=== PATIENT | male | born 1940 | race Caucasian/White ===

== ENCOUNTER → 2017-03-20 | Outpatient (CLI) | payer MEDICARE, BC, OTHER ==
[~2017-03-20] MED LIST: /ESOM40CA; /FERG32TA PO; /PANT40TA PO; /WARF25TA; ASPI81CH PO; ATOR40TA PO; CEPH2CAP PO; DIVA500T9 PO; ERGO5000 PO; FINA5TAB2 PO; FISHCAP PO; LISI20TA PO; MULTTAB4 PO; MUPI2OIN TOP; NAPR500T2 PO; PERC5TAB8; SANT250O TOP; SYMB80AE INH; TRIA TOP; TYLE325T5 PO; VITA100066 PO; VITA200028 PO; VITAMIN D50000 UNT; VYTO10TA5; ZEST20TA8 PO
--- NOTE | 2017-03-22 11:32 | SLEEPCENT ---
DATE OF STUDY: 03/20/2017 ORDERING PHYSICIAN: Joe Robles MD Nocturnal polysomnography was performed for retitration of pressure therapy in this patient with obstructive sleep apnea syndrome on bilevel treatment. For testing, a Kanshu Simplus full face mask of medium size was used. An initial bilevel pressure of 12 inspiratory over 8 expiratory was applied to the circuit, and the lights were extinguished. 8 hours and 22 minutes of data were reviewed. Of these, 419 minutes of sleep were identified. Sleep latency was quite short at 4 minutes. Rapid eye movement (REM) latency was also short at 33 minutes. Sleep architecture was fair with four REM periods appreciated. There was some fragmentation, but overall sleep efficiency was 84%. The patient's electrocardiogram (EKG) showed what appeared to be a sinus rhythm with an average heart rate of 56 beats per minute. Electroencephalogram (EEG) showed reasonably normal waveforms. No focal events were identified. Respiratory events were found best palliated with bilevel pressure, inspiratory 16 over expiratory 12. Limb activity appreciated early in the study became significantly less over the course of the test. IMPRESSION: Obstructive sleep apnea syndrome (G47.33). RECOMMENDATION: Nightly use of bilevel pressure therapy, inspiratory 16 over expiratory 12.
== END ==
LOC: M SLEEP 20:10
PROVIDERS: ATTEND Internal Medicine Pulmonary Disease
DX: G47.33 Obstructive sleep apnea (adult) (pediatric) (principal)

== ENCOUNTER → 2018-03-18 | Outpatient (CLI) | payer MEDICARE, BC, OTHER | LOC: M SLEEP 20:00 | DX: G47.33 Obstructive sleep apnea (adult) (pediatric) (principal) | CPT/HCPCS: 95811 ==

== ENCOUNTER → 2019-10-08 | Outpatient (CLI) | payer MEDICARE, BC, OTHER ==
[~2019-10-08] MED LIST changes: -/ESOM40CA; -/FERG32TA PO; -/PANT40TA PO; -/WARF25TA; +COLL30OI TOP; +COUM1TAB18; +FERR1TAB6 PO; +NEXI1CAP3; +PROT1TAB2 PO; -SANT250O TOP; -TRIA TOP; +TRIA1CRE5 TOP
[2019-10-08 13:37] LABS: HEMATOCRIT 41.2 % (42.0-52.0); HEMOGLOBIN 13.4 g/dl (13.5-17.5); MEAN CORPUSCULAR HGB CONC 32.5 g/dl (32.0-36.5); MEAN CORPUSCULAR VOLUME 101.5 fl (80.0-96.0); PLATELET COUNT, AUTOMATED 156 10^3/uL (150-450); RED BLOOD COUNT 4.06 10^6/uL (4.30-6.10); WHITE BLOOD COUNT 6.4 10^3/uL (4.0-10.0)
--- NOTE | 2019-10-08 13:48 | REP ---
Clinical: Preoperative assessment . Comparison: 06/29/2016 . Technique: PA and lateral. Findings: The cardiac silhouette is mildly enlarged but stable. Hiatal hernia with air-fluid level noted. The lung crespo are clear and without acute consolidation, effusion, or pneumothorax. The skeletal structures are intact and normal. Impression: 1. No acute cardiopulmonary process. Electronically Signed by Sim Ladd MD 10/08/2019 01:39 P
[2019-10-08 13:49] LABS: INR 1.14; PROTHROMBIN TIME 14.3 SECONDS (11.8-14.0)
[2019-10-08 14:00] LABS: ERYTHROCYTE SEDIMENTATION RATE 5 mm/hr (0-20)
[2019-10-08 14:04] LABS: ALBUMIN 3.6 GM/DL (3.2-5.2); BILIRUBIN,TOTAL 0.7 MG/DL (0.2-1.0); CALCIUM LEVEL 9.4 MG/DL (8.8-10.2); CREATININE FOR GFR 2.32 MG/DL (0.70-1.30); POTASSIUM SERUM 5.2 MEQ/L (3.5-5.1); TOTAL PROTEIN 6.2 GM/DL (6.4-8.2)
--- NOTE | 2019-10-08 15:55 | ECGEPIP ---
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
== END ==
LOC: M LAB 12:31
PROVIDERS: ATTEND Internal Medicine
DX: Z01.818 Encounter for other preprocedural examination (principal); Z79.01 Long term (current) use of anticoagulants

== ENCOUNTER 2019-10-19 13:15 | Day surgery (SDC) | payer MEDICARE, BC, OTHER ==
[~2019-10-19] VITALS: Ht 177.8 cm; Wt 111.6 kg
[~2019-10-19 13:15] MED LIST changes: +ASPI81TA26 PO; +ATOR40TA75 PO; +DOXY100T PO; +FERR32TA PO; +FISH1000 PO; +FLON1SPR NARES; +LEVO150T7 PO; +LISI2.5T76 PO; +LISI20TA19 PO; +MULT1TAB8 PO; +NAPR-885 PO; +NS 1,000 ML IV SCH; +PANT40TA3 PO; +PROAAER10 INH; +SYMB16INH INH; +TAMS1CAP17 PO; +VITA50005 PO
[2019-10-19] MEDS ORDERED: LIDOCAINE 2% INJ 100 MG/5 ML SDV (FOR ANES.) As Ordered ONE (14:16)
[2019-10-19] MEDS ORDERED: PROPOFOL 200 MG/20 ML VIAL As Ordered ONE (14:16)
--- NOTE | 2019-10-19 14:39 | ROOR ---
Patient Name: Enrique Castillo Procedure Date: 10/19/2019 2:15 PM Date of : 1940 Age: 79 Room: [facility] Gender: Male Note Status: Finalized Procedure: Upper GI endoscopy Indications: Dysphagia Providers: Alden DAWKINS MD Referring MD: Jose Pearson MD Requesting Provider: Medicines: Monitored Anesthesia Care Complications: No immediate complications. Procedure: Pre-Anesthesia Assessment: - The heart rate, respiratory rate, oxygen saturations, blood pressure, adequacy of pulmonary ventilation, and response to care were monitored throughout the procedure. The Endoscope was introduced through the mouth, and advanced to the second part of duodenum. The upper GI endoscopy was accomplished without difficulty. The patient tolerated the procedure well. Findings: A moderate Schatzki ring was found at the gastroesophageal junction. A TTS dilator was passed through the scope. Dilation with an 18-19-20 mm balloon dilator was performed to 19 mm. The dilation site was examined and showed complete resolution of luminal narrowing. A medium-sized hiatal hernia was present. The exam of the stomach was otherwise normal. The examined duodenum was normal. Impression: - Moderate Schatzki ring. Dilated. - Medium/large-sized hiatal hernia. - The stomach is otherwise normal. - Normal examined duodenum. - No specimens collected. Recommendation: - Observe patient's clinical course. - Advance diet as tolerated. Alden Dawkins MD Alden DAWKINS MD 10/19/2019 2:39:09 PM Electronically signed by Alden DAWKINS MD Number of Addenda: 0 Note Initiated On: 10/19/2019 2:15 PM Estimated Blood Loss: Estimated blood loss: none.
[2019-10-19 15:14] VITALS: BP 135/66
== END 2019-10-19 15:14 | disposition home or self-care (01) ==
LOC: M OPP 13:15
PROVIDERS: ATTEND Internal Medicine Gastroenterology
DX: K22.2 Esophageal obstruction (principal); K44.9 Diaphragmatic hernia without obstruction or gangrene; R13.10 Dysphagia, unspecified; Z79.82 Long term (current) use of aspirin; Z79.899 Other long term (current) drug therapy; Z88.2 Allergy status to sulfonamides; Z88.1 Allergy status to other antibiotic agents; Z91.018 Allergy to other foods

== ENCOUNTER → 2020-01-30 | Outpatient (REF) | payer MEDICARE, OTHER ==
[~2020-01-30] MED LIST changes: -NS 1,000 ML IV SCH
[2020-01-30 13:33] LABS: C REACTIVE PROTEIN QUANTITATIV < 0.30 MG/DL (0.00-0.30); RHEUMATOID FACTOR QUANT < 10.0 IU/ML (<15.0)
[2020-01-30 13:36] LABS: BASO % 0.5 % (0.0-1.0); EOS # 0.3 10^3/uL (0.0-0.5); EOS % 4.5 % (0.0-3.0); HEMATOCRIT 36.3 % (42.0-52.0); LYMPH # 0.8 10^3/uL (1.5-5.0); LYMPH % 13.5 % (24.0-44.0); MEAN CORPUSCULAR HEMOGLOBIN 33.1 pg (27.0-33.0); MEAN CORPUSCULAR HGB CONC 33.1 g/dl (32.0-36.5); MEAN CORPUSCULAR VOLUME 100.3 fl (80.0-96.0); MONO # 0.8 10^3/uL (0.0-0.8); MONO % 12.8 % (0.0-5.0); NEUTROPHILS # 4.3 10^3/uL (1.5-8.5); NEUTROPHILS % 68.2 % (36.0-66.0); PLATELET COUNT, AUTOMATED 146 10^3/uL (150-450); RED BLOOD COUNT 3.62 10^6/uL (4.30-6.10); WHITE BLOOD COUNT 6.2 10^3/uL (4.0-10.0)
[2020-01-30 13:46] LABS: INR 1.1; PROTHROMBIN TIME 13.9 SECONDS (11.8-14.0)
[2020-01-30 14:13] LABS: ERYTHROCYTE SEDIMENTATION RATE 3 mm/hr (0-20)
[2020-02-01 14:08] LABS: CYCLIC CITRULLINATED PEPTIDE 8 units (0-19); Lyme Disease IgG/IgM Antibodie <0.91 ISR (0.00-0.90); Lyme Disease IgM Ab Quantitati <0.80 index (0.00-0.79)
== END ==
LOC: M SFHCPLAZ 11:00
PROVIDERS: ATTEND Internal Medicine
DX: M25.50 Pain in unspecified joint (principal); W57.XXXA Bitten or stung by nonvenomous insect and other nonvenomous arthropods, initial encounter; R23.8 Other skin changes
CPT/HCPCS: 36415; 85025; 85610; 85652; 86140; 86200; 86431; 86617; G0463

== ENCOUNTER → 2020-04-11 | Outpatient (CLI) | payer MEDICARE, BC, OTHER ==
[~2020-04-11] MED LIST changes: +LISI-1034 PO; -LISI2.5T76 PO
== END ==
LOC: M LABSMTC 09:57
PROVIDERS: ATTEND Physician Assistant
DX: Z03.818 Encounter for observation for suspected exposure to other biological agents ruled out (principal); Z11.59 Encounter for screening for other viral diseases

== ENCOUNTER → 2020-05-26 | Outpatient (CLI) | payer MEDICARE, BC, OTHER ==
[~2020-05-26] MED LIST changes: -LISI-1034 PO; +LISI2.5T8 PO; -LISI20TA19 PO; +LISI20TA35 PO; +PANT40TA29 PO; -PANT40TA3 PO
--- NOTE | 2020-05-26 15:26 | REP ---
WHOLE BODY RADIONUCLIDE BONE SCAN: HISTORY: Spondylolysis lumbar spine. Question metastasis. No comparison imaging. The patient gives a history of a remote right knee replacement. TECHNIQUE: 21.4 mCi technetium 99m MDP is injected and standard whole body bone scan imaging was acquired. SCINTIGRAPHIC FINDINGS: There is uptake in bilateral kidneys and in the urinary bladder. There is some anterior mandibular and diffuse maxillary periodontal uptake bilaterally suggesting. Dental disease or other dental abnormality. Mild degenerative uptake is seen in the cervical spine and lumbosacral spine. There is degenerative uptake at the costovertebral junctions of T11 bilaterally and T12 on the left. There is a focus of increased uptake in the right rib cage involving the anterior right 9th rib end consistent with a recent fracture. There is osteoarthritic uptake in the left knee and photopenia associated with right knee arthroplasty is seen. There is osteoarthritic midfoot uptake bilaterally. IMPRESSION: Degenerative and osteoarthritic uptake pattern. Right anterior 9th rib and focus of increased uptake may correspond with recent fracture. Mandibular and maxillary uptake pattern suggests periodontal disease or dental inflammation. There is no scintigraphic evidence suggestive of metastatic disease. Electronically Signed by Aguila Edmond MD 05/26/2020 04:19 P
== END ==
LOC: M RAD 10:09
PROVIDERS: ATTEND Physical Medicine & Rehabilitation
DX: M43.06 Spondylolysis, lumbar region (principal)
CPT/HCPCS: 78306; A9503

== ENCOUNTER → 2020-08-27 | Outpatient (CLI) | payer MEDICARE, BC, OTHER | LOC: M LABSMTC 09:44 | PROVIDERS: ATTEND Physical Medicine & Rehabilitation | DX: Z01.812 Encounter for preprocedural laboratory examination (principal); Z20.828 Contact with and (suspected) exposure to other viral communicable diseases ==

== ENCOUNTER → 2020-09-30 | Outpatient (REF) | payer MEDICARE, BC, OTHER ==
[2020-09-30 14:04] LABS: APPEARANCE, URINE CLEAR (CLEAR); BACTERIA, URINE AUTO NEGATIVE (NEGATIVE); BILIRUBIN, URINE AUTO NEGATIVE (NEGATIVE); BLOOD, URINE BLOOD NEGATIVE (NEGATIVE); COLOR, URINE YELLOW (YELLOW); GLUCOSE, URINE (UA) AUTO NEGATIVE (NEGATIVE); KETONE, URINE AUTO NEGATIVE (NEGATIVE); LEUKOCYTE ESTERASE, URINE AUTO 1+ (NEGATIVE); MUCUS, URINE SMALL (NEGATIVE); NITRITE, URINE AUTO NEGATIVE (NEGATIVE); PROTEIN, URINE AUTO NEGATIVE (NEGATIVE); RBC, URINE AUTO 0 /HPF (0-3); SPECIFIC GRAVITY URINE AUTO 1.016 (1.002-1.035); SQUAMOUS EPITHELIAL CELL UR AU 0 /HPF (0-6); UROBILINOGEN, URINE AUTO 0.2 mg/dL (0.0-2.0); WBC, URINE AUTO 4 /HPF (0-3)
== END ==
LOC: M SFHCPLAZ 13:12
PROVIDERS: ATTEND Physician Assistant Medical
DX: I12.9 Hypertensive chronic kidney disease with stage 1 through stage 4 chronic kidney disease, or unspecified chronic kidney disease (principal); N18.30 Chronic kidney disease, stage 3 unspecified; Z79.899 Other long term (current) drug therapy; Z23 Encounter for immunization
CPT/HCPCS: 81001; 81002; 87088; 87186; 90682; G0008; G0463

== ENCOUNTER → 2021-03-31 | Outpatient (REF) | payer MEDICARE, OTHER ==
[2021-03-31 13:42] LABS: BASO % 0.5 % (0.0-1.0); EOS # 0.3 10^3/uL (0.0-0.5); EOS % 4.7 % (0.0-3.0); HEMOGLOBIN 12.2 g/dl (13.5-17.5); LYMPH % 16.4 % (24.0-44.0); MEAN CORPUSCULAR HEMOGLOBIN 32.4 pg (27.0-33.0); MEAN CORPUSCULAR VOLUME 98.1 fl (80.0-96.0); MONO # 0.7 10^3/uL (0.0-0.8); MONO % 11.1 % (2.0-8.0); NEUTROPHILS # 4.2 10^3/uL (1.5-8.5); NEUTROPHILS % 66.8 % (36.0-66.0); PLATELET COUNT, AUTOMATED 199 10^3/uL (150-450); RED BLOOD COUNT 3.77 10^6/uL (4.30-6.10); WHITE BLOOD COUNT 6.2 10^3/uL (4.0-10.0)
[2021-03-31 15:59] LABS: ALBUMIN 3.8 GM/DL (3.2-5.2); BILIRUBIN,TOTAL 0.8 MG/DL (0.2-1.0); CALCIUM LEVEL 9.5 MG/DL (8.8-10.2); CHOLESTEROL RISK RATIO 3.244 (<5); CREATININE FOR GFR 2.23 MG/DL (0.70-1.30); GLOMERULAR FILTRATION RATE 30.3 (>35); MAGNESIUM LEVEL 1.9 MG/DL (1.8-2.4); POTASSIUM SERUM 5.1 MEQ/L (3.5-5.1); THYROID STIMULATING HORMONE 0.575 uIU/ML (0.358-3.740); TOTAL PROTEIN 6.5 GM/DL (6.4-8.2)
== END ==
LOC: M SFHCPLAZ 10:21
PROVIDERS: ATTEND Internal Medicine
DX: J45.909 Unspecified asthma, uncomplicated (principal); I12.9 Hypertensive chronic kidney disease with stage 1 through stage 4 chronic kidney disease, or unspecified chronic kidney disease; E78.00 Pure hypercholesterolemia, unspecified; N18.30 Chronic kidney disease, stage 3 unspecified; E89.0 Postprocedural hypothyroidism
CPT/HCPCS: 36415; 80053; 80061; 83735; 83970; 84443; 85025; G0463

== ENCOUNTER → 2021-12-10 | Outpatient (CLI) | payer MEDICARE, BC, OTHER ==
[~2021-12-10] MED LIST changes: +ERGO500029 PO; -VITA50005 PO
== END ==
LOC: M RAD 14:28
PROVIDERS: ATTEND Internal Medicine Pulmonary Disease
DX: R91.8 Other nonspecific abnormal finding of lung field (principal)

== ENCOUNTER → 2022-03-31 | Outpatient (CLI) | payer MEDICARE, BC, OTHER ==
[2022-03-31 13:28] LABS: BASO % 0.6 % (0.0-1.0); EOS # 0.4 10^3/uL (0.0-0.5); EOS % 5.6 % (0.0-3.0); LYMPH % 14.4 % (24.0-44.0); MEAN CORPUSCULAR HEMOGLOBIN 32.3 pg (27.0-33.0); MEAN CORPUSCULAR HGB CONC 33.3 g/dl (32.0-36.5); MEAN CORPUSCULAR VOLUME 96.8 fl (80.0-96.0); MONO # 0.9 10^3/uL (0.0-0.8); MONO % 11.8 % (2.0-8.0); NEUTROPHILS # 4.9 10^3/uL (1.5-8.5); NEUTROPHILS % 67.3 % (36.0-66.0); PLATELET COUNT, AUTOMATED 128 10^3/uL (150-450); RED BLOOD COUNT 3.72 10^6/uL (4.30-6.10); WHITE BLOOD COUNT 7.2 10^3/uL (4.0-10.0)
[2022-03-31 13:44] LABS: HEMOGLOBIN A1c 5.6 %
[2022-03-31 13:51] LABS: ALBUMIN 3.6 GM/DL (3.2-5.2); CALCIUM LEVEL 9.3 MG/DL (8.8-10.2); CHOLESTEROL RISK RATIO 2.322 (<5); CREATININE FOR GFR 2.13 MG/DL (0.70-1.30); GLOMERULAR FILTRATION RATE 31.8 (>35); MAGNESIUM LEVEL 1.8 MG/DL (1.8-2.4); POTASSIUM SERUM 5.3 MEQ/L (3.5-5.1); PTH INTACT 26.3 PG/ML (18.5-88.0); THYROID STIMULATING HORMONE 0.743 uIU/ML (0.358-3.740); TOTAL PROTEIN 6.2 GM/DL (6.4-8.2)
== END ==
LOC: M PLALAB 11:45
PROVIDERS: ATTEND Internal Medicine
DX: I12.9 Hypertensive chronic kidney disease with stage 1 through stage 4 chronic kidney disease, or unspecified chronic kidney disease (principal); E78.00 Pure hypercholesterolemia, unspecified; N18.32 Chronic kidney disease, stage 3b; E89.0 Postprocedural hypothyroidism; R73.09 Other abnormal glucose

== ENCOUNTER → 2022-11-26 | Outpatient (CLI) | payer MEDICARE, BC, OTHER ==
[2022-11-26 14:03] LABS: BASO % 0.6 % (0.0-1.0); EOS # 0.2 10^3/uL (0.0-0.5); EOS % 3.4 % (0.0-3.0); HEMATOCRIT 39.5 % (42.0-52.0); HEMOGLOBIN 12.6 g/dl (13.5-17.5); LYMPH # 1.2 10^3/uL (1.5-5.0); LYMPH % 16.5 % (24.0-44.0); MEAN CORPUSCULAR HEMOGLOBIN 31.4 pg (27.0-33.0); MEAN CORPUSCULAR HGB CONC 31.9 g/dl (32.0-36.5); MEAN CORPUSCULAR VOLUME 98.5 fl (80.0-96.0); MONO # 0.8 10^3/uL (0.0-0.8); MONO % 11.9 % (2.0-8.0); NEUTROPHILS # 4.8 10^3/uL (1.5-8.5); NEUTROPHILS % 67.5 % (36.0-66.0); PLATELET COUNT, AUTOMATED 177 10^3/uL (150-450); RED BLOOD COUNT 4.01 10^6/uL (4.30-6.10)
[2022-11-26 14:12] LABS: INR 0.93; PROTHROMBIN TIME 12.7 SECONDS (12.5-14.5)
[2022-11-26 14:13] LABS: PARTIAL THROMBOPLASTIN TIME 28.1 SECONDS (24.8-34.2)
[2022-11-26 14:38] LABS: ALBUMIN 3.9 G/DL (3.2-5.2); BILIRUBIN,TOTAL 1.1 MG/DL (0.3-1.2); CALCIUM LEVEL 10.5 MG/DL (8.3-10.6); CREATININE FOR GFR 1.98 MG/DL (0.70-1.30); GLOMERULAR FILTRATION RATE 34.5 (>35); POTASSIUM SERUM 4.8 MMOL/L (3.5-5.1); TOTAL PROTEIN 6.6 G/DL (5.7-8.2)
== END ==
LOC: M PLALAB 11:44
PROVIDERS: ATTEND Family Medicine
DX: N18.32 Chronic kidney disease, stage 3b (principal); Z79.899 Other long term (current) drug therapy

== ENCOUNTER → 2023-04-01 | Outpatient (CLI) | payer MEDICARE, BC, OTHER ==
[~2023-04-01] MED LIST changes: +LIDOCAINE 1% MDV 20ML VIAL As Ordered ONE
[2023-04-01 13:30] VITALS: BP 165/77
[2023-04-01 16:08] LABS: CRYSTALS, BODY FLUID NONE SEEN (NONE SEEN); SOURCE, BODY FLUID CRYSTALS RIGHT HIP
== END ==
LOC: M IRPRO 12:36
PROVIDERS: ATTEND Orthopaedic Surgery
DX: M25.451 Effusion, right hip (principal)

== ENCOUNTER 2024-05-02 18:10 | Emergency (ER) | payer MEDICARE, BC ==
[~2024-05-02] VITALS: Ht 177.8 cm; Wt 84.5 kg
[~2024-05-02 18:10] MED LIST changes: -LIDOCAINE 1% MDV 20ML VIAL As Ordered ONE; +TRAM50TA2 PO
[2024-05-02] MEDS: ALTEPLASE 2MG/2ML VIAL IV ONE (18:53)
[2024-05-02 21:16] VITALS: BP 158/87; O2SAT 97
== END 2024-05-02 22:10 | disposition home or self-care (01) ==
LOC: M ED 18:10 → EDBD 18:10 → M ED 22:10
DX: T82.898A Other specified complication of vascular prosthetic devices, implants and grafts, initial encounter (principal); I10 Essential (primary) hypertension; N18.9 Chronic kidney disease, unspecified; D63.8 Anemia in other chronic diseases classified elsewhere; G47.33 Obstructive sleep apnea (adult) (pediatric); Z86.79 Personal history of other diseases of the circulatory system; Z79.52 Long term (current) use of systemic steroids; Z79.82 Long term (current) use of aspirin; Z79.02 Long term (current) use of antithrombotics/antiplatelets; Z79.811 Long term (current) use of aromatase inhibitors; Z79.899 Other long term (current) drug therapy
CPT/HCPCS: 96374; 99284; J2997

== ENCOUNTER 2024-05-06 10:18 | Inpatient (IN) | payer MEDICARE, BC ==
[~2024-05-06] VITALS: Ht 177.8 cm; Wt 80.7 kg
[2024-05-06] MEDS ORDERED: SODIUM CHLORIDE 0.9% INJ 10 ML SYR IV PRN (12:50)
[2024-05-06 13:33] LABS: BASO # 0.1 10^3/uL (0.0-0.2); BASO % 0.6 % (0.0-1.0); EOS # 0.6 10^3/uL (0.0-0.5); EOS % 5.5 % (0.0-3.0); HEMATOCRIT 37.8 % (42.0-52.0); HEMOGLOBIN 12.4 g/dl (13.5-17.5); LYMPH # 1.3 10^3/uL (1.5-5.0); LYMPH % 12.3 % (24.0-44.0); MEAN CORPUSCULAR HEMOGLOBIN 31.6 pg (27.0-33.0); MEAN CORPUSCULAR HGB CONC 32.8 g/dl (32.0-36.5); MEAN CORPUSCULAR VOLUME 96.2 fl (80.0-96.0); MONO # 0.9 10^3/uL (0.0-0.8); NEUTROPHILS # 7.4 10^3/uL (1.5-8.5); NEUTROPHILS % 72.1 % (36.0-66.0); PLATELET COUNT, AUTOMATED 198 10^3/uL (150-450); RED BLOOD COUNT 3.93 10^6/uL (4.30-6.10); WHITE BLOOD COUNT 10.2 10^3/uL (4.0-10.0)
[2024-05-06 13:41] LABS: ERYTHROCYTE SEDIMENTATION RATE 53 mm/hr (0-20)
[2024-05-06 13:53] LABS: C REACTIVE PROTEIN QUANTITATIV 5.8 MG/DL (<1.0)
[2024-05-06] MEDS ORDERED: PROHANCE 279.3MG/ML 5ML VIAL As Ordered ONE (14:18)
[2024-05-06] MEDS ORDERED: PROHANCE 279.3MG/ML 15ML VIAL As Ordered ONE (14:18)
[2024-05-06] MEDS: ACETAMINOPHEN TAB 650MG DOSE (2X325MG) PO ONE (17:06)
[2024-05-06] MEDS ORDERED: ACETAMINOPHEN TAB 650MG DOSE (2X325MG) PO PRN (17:55)
[2024-05-06] MEDS ORDERED: MOM 30ML SUSPENSION UDC PO PRN (17:55)
[2024-05-06] MEDS: ALTEPLASE 2MG/2ML VIAL XX ONE (18:35)
[2024-05-06] MEDS: SODIUM CHLORIDE 0.9% INJ 10 ML SYR IV SCH (18:36)
[2024-05-06] MEDS ORDERED: AMOX875T2 PO (18:52)
[2024-05-06] MEDS ORDERED: BREO1INH INH (18:52)
[2024-05-06] MEDS ORDERED: BUSP5TA PO (18:52)
[2024-05-06] MEDS ORDERED: TOPR25TA PO (18:52)
[2024-05-06] MEDS ORDERED: MM S100C PO (18:52)
[2024-05-06] MEDS ORDERED: ALTE2VL IV (18:52)
[2024-05-06] MEDS ORDERED: AMLO1TAB24 PO (18:52)
[2024-05-06] MEDS ORDERED: LIDO1ADH10 TP (18:52)
[2024-05-06] MEDS ORDERED: MIRT-88 PO (18:52)
[2024-05-06] MEDS ORDERED: ACET-683 PO (18:52)
[2024-05-06] MEDS ORDERED: DAPT500V8 IV (18:52)
[2024-05-06] MEDS ORDERED: FINA5TAB2 PO (18:52)
[2024-05-06] MEDS ORDERED: MYRB25TA PO (18:52)
[2024-05-06] MEDS ORDERED: GABA-282 PO (18:52)
[2024-05-06] MEDS ORDERED: SENN-186 PO (19:21)
[2024-05-06] MEDS ORDERED: ALBU8.5H INH (19:21)
[2024-05-06] MEDS ORDERED: HOME MED LIST COMPLETE! XX SCH (19:25)
[2024-05-06 19:31] LABS: HEMOGLOBIN A1c 5.4 % (4.0-6.0)
[2024-05-06 20:22] LABS: CHOLESTEROL RISK RATIO 4.4 (<5); HDL CHOLESTEROL 40.9 MG/DL (>40); LDL CHOLESTEROL 107.5 MG/DL (<100); NON-HDL-C 139.1 MG/DL
[2024-05-06 20:23] LABS: MB/CK RELATIVE INDEX 1.88 (< OR =4)
[2024-05-06 22:06] VITALS: BP 139/81; TEMP 97.2; O2SAT 93
[2024-05-06] MEDS ORDERED: traMADol 50 MG TAB PO PRN (22:15)
[2024-05-06] MEDS: TAMSULOSIN 0.4 MG CAP PO SCH (22:30)
[2024-05-06] MEDS: MIRTAZAPINE 7.5MG PER 1/2 TABLET PO SCH (22:30)
[2024-05-06] MEDS: FINASTERIDE 5MG TAB PO SCH (22:30)
[2024-05-06] MEDS: GABAPENTIN 300 MG CAP PO SCH (22:30)
[2024-05-06] MEDS: busPIRone 5 MG TAB PO SCH (22:30)
[2024-05-06] MEDS: DOCUSATE SODIUM 100MG CAPSULE PO SCH (22:30)
[2024-05-06] MEDS: NS IV SCH (23:52)
[2024-05-06] MEDS: DAPTOMYCIN IV SCH (23:52)
[2024-05-07] VITALS (14 sets, daily range): BP systolic 112–143; BP diastolic 68–88; TEMP 97.4–98; O2SAT 88–98
[2024-05-07] MEDS: LEVOTHYROXINE 150MCG TABLET (0.15MG) PO SCH (04:57)
[2024-05-07] MEDS: HEPARIN SOD (PORCINE) 5000UNITS/ML 1ML VIAL/SYRINGE SQ SCH (05:05)
[2024-05-07 05:51] LABS: HEMATOCRIT 35.1 % (42.0-52.0); HEMOGLOBIN 11.6 g/dl (13.5-17.5); MEAN CORPUSCULAR HEMOGLOBIN 31.5 pg (27.0-33.0); MEAN CORPUSCULAR VOLUME 95.4 fl (80.0-96.0); PLATELET COUNT, AUTOMATED 206 10^3/uL (150-450); RED BLOOD COUNT 3.68 10^6/uL (4.30-6.10); WHITE BLOOD COUNT 9.5 10^3/uL (4.0-10.0)
[2024-05-07 06:08] LABS: INR 1.08; PROTHROMBIN TIME 13.7 SECONDS (12.5-14.5)
[2024-05-07 06:20] LABS: CALCIUM LEVEL 10.2 MG/DL (8.3-10.6); CREATININE FOR GFR 1.63 MG/DL (0.70-1.30); GLOMERULAR FILTRATION RATE 43.1 (>35); POTASSIUM SERUM 4.5 MMOL/L (3.5-5.1)
[2024-05-07 06:27] LABS: ERYTHROCYTE SEDIMENTATION RATE 55 mm/hr (0-20); PROCALCITONIN 0.06 ng/ml
[2024-05-07] MEDS ORDERED: MIRALAX *UNIT DOSE* 17GM PACKET PO SCH (09:00)
[2024-05-07] MEDS ORDERED: ENOXAPARIN 40MG/0.4ML SYRINGE (J1650 PER 10MG) SC SCH (09:00)
[2024-05-07] MEDS: ADVAIR HFA 230/21MCG INHALER INH SCH (10:39)
[2024-05-07] MEDS ORDERED: VARIBAR NECTAR 40% w/v 240ML SUSP BTL As Ordered ONE (11:41)
[2024-05-07] MEDS ORDERED: VARIBAR PUDDING 40% w/v 230ML TUBE As Ordered ONE (11:41)
[2024-05-07] MEDS ORDERED: BARIUM SULFATE 700 MG TABLET (E-Z-DISK) As Ordered ONE (11:41)
[2024-05-07] MEDS ORDERED: E-Z-PAQUE 96% w/w SUSP 176GM BTL As Ordered ONE (11:41)
[2024-05-07] MEDS: ASPIRIN 325 MG TAB PO SCH (15:01)
[2024-05-07] MEDS: PANTOPRAZOLE 40MG TAB (PROTONIX) PO SCH (15:02)
[2024-05-07] MEDS ORDERED: SENNA 8.6 MG TAB (SENOKOT) PO PRN (16:10)
[2024-05-07] MEDS: PANTOPRAZOLE 40MG VIAL IV SCH (17:26)
[2024-05-07] MEDS: BISACODYL 10MG SUPP PR ONE (17:26)
[2024-05-07] MEDS: FLEET ENEMA PR ONE (18:06)
[2024-05-07] MEDS: SODIUM CHLORIDE 0.9% INJ 10 ML SYR IV SCH (18:18)
[2024-05-07] MEDS: ATORVASTATIN 20 MG TAB PO SCH (21:00)
[2024-05-07] MEDS: NYSTATIN 100,000 UNITS/GM TOPICAL PWD 15GM TOP SCH (21:37)
[2024-05-08 03:50] VITALS: BP 129/79; TEMP 98.4; O2SAT 97
[2024-05-08 06:17] LABS: HEMATOCRIT 35.1 % (42.0-52.0); HEMOGLOBIN 11.8 g/dl (13.5-17.5); MEAN CORPUSCULAR HEMOGLOBIN 32.2 pg (27.0-33.0); MEAN CORPUSCULAR HGB CONC 33.6 g/dl (32.0-36.5); MEAN CORPUSCULAR VOLUME 95.6 fl (80.0-96.0); PLATELET COUNT, AUTOMATED 202 10^3/uL (150-450); RED BLOOD COUNT 3.67 10^6/uL (4.30-6.10); WHITE BLOOD COUNT 7.4 10^3/uL (4.0-10.0)
[2024-05-08 06:31] LABS: INR 1.12; PROTHROMBIN TIME 14.1 SECONDS (12.5-14.5)
[2024-05-08 06:46] LABS: CALCIUM LEVEL 10.3 MG/DL (8.3-10.6); CREATININE FOR GFR 1.79 MG/DL (0.70-1.30); GLOMERULAR FILTRATION RATE 38.7 (>35); POTASSIUM SERUM 4.3 MMOL/L (3.5-5.1)
[2024-05-08 07:37] VITALS: BP 119/86; TEMP 98; O2SAT 96
[2024-05-08] MEDS ORDERED: MORPHINE 4 MG/ML 1ML VIAL IV PRN (11:00)
[2024-05-08 11:29] VITALS: BP 131/82; TEMP 98; O2SAT 96
[2024-05-08] MEDS: ASPIRIN 300 MG SUPP PR ONE (11:30)
[2024-05-08] MEDS: ACETAMINOPHEN *IV* 1,000 MG in IV 1 EA IV ONE (12:07)
[2024-05-08 15:20] VITALS: BP 130/86; TEMP 97.9; O2SAT 95
[2024-05-08] MEDS: LR 1,000 ML IV SCH (15:34)
[2024-05-08 19:40] VITALS: BP 127/71; TEMP 98.1; O2SAT 91
[2024-05-09] VITALS (12 sets, daily range): BP systolic 113–170; BP diastolic 70–98; TEMP 97.3–98.3; O2SAT 93–97
[2024-05-09 06:21] LABS: HEMATOCRIT 34.6 % (42.0-52.0); HEMOGLOBIN 11.4 g/dl (13.5-17.5); MEAN CORPUSCULAR HEMOGLOBIN 31.8 pg (27.0-33.0); MEAN CORPUSCULAR HGB CONC 32.9 g/dl (32.0-36.5); MEAN CORPUSCULAR VOLUME 96.6 fl (80.0-96.0); PLATELET COUNT, AUTOMATED 189 10^3/uL (150-450); RED BLOOD COUNT 3.58 10^6/uL (4.30-6.10); WHITE BLOOD COUNT 7.5 10^3/uL (4.0-10.0)
[2024-05-09 06:37] LABS: INR 1.14; PROTHROMBIN TIME 14.3 SECONDS (12.5-14.5)
[2024-05-09 06:48] LABS: C REACTIVE PROTEIN QUANTITATIV 6.3 MG/DL (<1.0)
[2024-05-09 06:50] LABS: CREATININE FOR GFR 1.77 MG/DL (0.70-1.30); GLOMERULAR FILTRATION RATE 39.2 (>35); POTASSIUM SERUM 4.2 MMOL/L (3.5-5.1)
[2024-05-09 06:57] LABS: ERYTHROCYTE SEDIMENTATION RATE 46 mm/hr (0-20); PROCALCITONIN 0.2 ng/ml
[2024-05-09] MEDS: ACETAMINOPHEN *IV* 1,000 MG in IV 1 EA IV ONE (10:06)
[2024-05-09] MEDS: ASPIRIN 300 MG SUPP PR ONE (10:06)
[2024-05-09] MEDS: D5W/0.45% SODIUM CHLORIDE 1,000 ML IV SCH (12:57)
[2024-05-09] MEDS: CETACAINE SPRAY 5GM As Ordered ONE (14:41)
[2024-05-09] MEDS ORDERED: HYDROMORPHONE HCL 0.5 MG/ 0.5 ML SYRINGE IV PRN ×2 (14:50→15:05)
[2024-05-09] MEDS: HYDROMORPHONE HCL 0.5 MG/ 0.5 ML SYRINGE IV PRN (15:39)
[2024-05-09] MEDS ORDERED: propofoL 200 MG/20 ML VIAL As Ordered ONE (16:41)
[2024-05-09] MEDS ORDERED: LR 1,000 ML IV SCH (17:00)
[2024-05-10 03:20] VITALS: BP 128/81; TEMP 98.4; O2SAT 97
[2024-05-10 05:07] LABS: HEMATOCRIT 32.4 % (42.0-52.0); HEMOGLOBIN 10.4 g/dl (13.5-17.5); MEAN CORPUSCULAR HGB CONC 32.1 g/dl (32.0-36.5); MEAN CORPUSCULAR VOLUME 96.7 fl (80.0-96.0); PLATELET COUNT, AUTOMATED 184 10^3/uL (150-450); RED BLOOD COUNT 3.35 10^6/uL (4.30-6.10); WHITE BLOOD COUNT 6.3 10^3/uL (4.0-10.0)
[2024-05-10 05:19] LABS: INR 1.18; PROTHROMBIN TIME 14.6 SECONDS (12.5-14.5)
[2024-05-10 05:32] LABS: CALCIUM LEVEL 9.5 MG/DL (8.3-10.6); CREATININE FOR GFR 1.55 MG/DL (0.70-1.30); GLOMERULAR FILTRATION RATE 45.7 (>35); POTASSIUM SERUM 3.8 MMOL/L (3.5-5.1)
[2024-05-10] MEDS: SODIUM CHLORIDE 0.9% INJ 10 ML SYR IV PRN (05:32)
[2024-05-10 07:29] VITALS: BP 129/80; TEMP 98; O2SAT 94
[2024-05-10 11:52] VITALS: BP_SYST 144; BP_SYST 155; BP_DIAS 86; BP_DIAS 96; TEMP 97.8; O2SAT 96
[2024-05-10] MEDS: ASPIRIN 300 MG SUPP PR SCH (12:29)
[2024-05-10 15:51] VITALS: BP 138/96; TEMP 98.2; O2SAT 95
[2024-05-10] MEDS: AMINO AC/ELECTROLYTE/DEX/CALC 2,000 ML IV SCH (17:48)
[2024-05-10] MEDS: FAT EMULSION IV 250 ML IV ONE (17:48)
[2024-05-10 19:00] VITALS: BP 140/80; TEMP 97.7
[2024-05-10 23:31] VITALS: BP 128/74; TEMP 98; O2SAT 95
[2024-05-11] VITALS (13 sets, daily range): BP systolic 132–147; BP diastolic 77–99; TEMP 96.9–98.8; O2SAT 89–96
[2024-05-11] MEDS: LIDOCAINE 5% (LIDODERM) PATCH TD ONE (04:23)
[2024-05-11 05:29] LABS: HEMATOCRIT 31.8 % (42.0-52.0); HEMOGLOBIN 10.4 g/dl (13.5-17.5); MEAN CORPUSCULAR HEMOGLOBIN 31.7 pg (27.0-33.0); MEAN CORPUSCULAR HGB CONC 32.7 g/dl (32.0-36.5); PLATELET COUNT, AUTOMATED 174 10^3/uL (150-450); RED BLOOD COUNT 3.28 10^6/uL (4.30-6.10); WHITE BLOOD COUNT 8.5 10^3/uL (4.0-10.0)
[2024-05-11 05:37] LABS: ERYTHROCYTE SEDIMENTATION RATE 28 mm/hr (0-20)
[2024-05-11 05:41] LABS: INR 1.15; PROTHROMBIN TIME 14.4 SECONDS (12.5-14.5)
[2024-05-11 05:54] LABS: C REACTIVE PROTEIN QUANTITATIV 2.4 MG/DL (<1.0)
[2024-05-11 05:56] LABS: CALCIUM LEVEL 9.6 MG/DL (8.3-10.6); CREATININE FOR GFR 1.45 MG/DL (0.70-1.30); GLOMERULAR FILTRATION RATE 49.4 (>35); MAGNESIUM LEVEL 1.5 MG/DL (1.8-2.4); PHOSPHORUS LEVEL 2.5 MG/DL (2.4-5.1); POTASSIUM SERUM 3.7 MMOL/L (3.5-5.1)
[2024-05-11 06:02] LABS: PROCALCITONIN 0.14 ng/ml
[2024-05-11] MEDS: MAG SULF 1GM/100ML (MAG RUN) 1 GM in IV 1 EA IV SCH (06:42)
[2024-05-11] MEDS ORDERED: MAG SULF 1GM/100ML (MAG RUN) 1 GM in IV 1 EA IV SCH (07:15)
[2024-05-11] MEDS: KCL 10MEQ/100ML SWI (KRUN) 10 MEQ in IV 1 EA IV SCH (10:18)
[2024-05-11] MEDS: FAT EMULSION IV 250 ML IV ONE (17:35)
[2024-05-11] MEDS: MULTIVITAMIN -ADULT INJECTION 10 ML, ZINC/COPPER/MANGANESE/SELENIUM 1 ML in AMINO AC/EL... IV SCH (17:35)
[2024-05-11] MEDS: ENOXAPARIN 80MG/0.8ML SYRINGE (J1650 PER 10MG) SC SCH (21:09)
[2024-05-12] VITALS (24 sets, daily range): BP systolic 105–147; BP diastolic 62–88; TEMP 97.2–98.4; O2SAT 89–96
[2024-05-12 04:33] LABS: HEMATOCRIT 31.4 % (42.0-52.0); HEMOGLOBIN 10.4 g/dl (13.5-17.5); MEAN CORPUSCULAR HEMOGLOBIN 31.9 pg (27.0-33.0); MEAN CORPUSCULAR HGB CONC 33.1 g/dl (32.0-36.5); MEAN CORPUSCULAR VOLUME 96.3 fl (80.0-96.0); PLATELET COUNT, AUTOMATED 168 10^3/uL (150-450); RED BLOOD COUNT 3.26 10^6/uL (4.30-6.10); WHITE BLOOD COUNT 11.5 10^3/uL (4.0-10.0)
[2024-05-12 04:51] LABS: INR 1.19; PROTHROMBIN TIME 14.7 SECONDS (12.5-14.5)
[2024-05-12 04:58] LABS: CALCIUM LEVEL 9.5 MG/DL (8.3-10.6); CREATININE FOR GFR 1.42 MG/DL (0.70-1.30); GLOMERULAR FILTRATION RATE 50.6 (>35); POTASSIUM SERUM 3.9 MMOL/L (3.5-5.1)
[2024-05-12 10:19] LABS: MAGNESIUM LEVEL 1.8 MG/DL (1.8-2.4)
[2024-05-12] MEDS: ACETAMINOPHEN 325MG/10.15ML UDC GT PRN (16:24)
[2024-05-12] MEDS: LR 1,000 ML IV ONE (18:33)
[2024-05-12 21:00] LABS: MAGNESIUM LEVEL 1.7 MG/DL (1.8-2.4); PHOSPHORUS LEVEL 3.3 MG/DL (2.4-5.1)
[2024-05-12] MEDS ORDERED: FINASTERIDE 5MG TAB GT SCH (21:00)
[2024-05-12] MEDS: GABAPENTIN 300 MG CAP GT SCH (21:28)
[2024-05-12] MEDS: ATORVASTATIN 20 MG TAB GT SCH (21:28)
[2024-05-12] MEDS: MIRTAZAPINE 7.5MG PER 1/2 TABLET GT SCH (21:28)
[2024-05-12] MEDS: busPIRone 5 MG TAB GT SCH (21:29)
[2024-05-13] VITALS (7 sets, daily range): BP systolic 82–115; BP diastolic 56–69; TEMP 97.5–98.5; O2SAT 93–96
[2024-05-13 04:21] LABS: ERYTHROCYTE SEDIMENTATION RATE 33 mm/hr (0-20)
[2024-05-13 04:31] LABS: INR 1.22; PROTHROMBIN TIME 15.1 SECONDS (12.5-14.5)
[2024-05-13 04:47] LABS: C REACTIVE PROTEIN QUANTITATIV 10.6 MG/DL (<1.0)
[2024-05-13 04:56] LABS: PROCALCITONIN 0.38 ng/ml
[2024-05-13] MEDS: LEVOTHYROXINE 150MCG TABLET (0.15MG) GT SCH (05:24)
[2024-05-13] MEDS: MAG SULF 1GM/100ML (MAG RUN) 1 GM in IV 1 EA IV ONE (06:45)
[2024-05-13 09:15] LABS: CALCIUM LEVEL 9.4 MG/DL (8.3-10.6); CREATININE FOR GFR 1.74 MG/DL (0.70-1.30); MAGNESIUM LEVEL 1.8 MG/DL (1.8-2.4); PHOSPHORUS LEVEL 3.6 MG/DL (2.4-5.1); POTASSIUM SERUM 4.2 MMOL/L (3.5-5.1)
[2024-05-13 09:46] LABS: BASO # 0.1 10^3/uL (0.0-0.2); BASO % 0.4 % (0.0-1.0); EOS # 0.4 10^3/uL (0.0-0.5); EOS % 3.4 % (0.0-3.0); HEMATOCRIT 27.8 % (42.0-52.0); HEMOGLOBIN 9.1 g/dl (13.5-17.5); LYMPH # 1.5 10^3/uL (1.5-5.0); LYMPH % 12.2 % (24.0-44.0); MEAN CORPUSCULAR HEMOGLOBIN 32.4 pg (27.0-33.0); MEAN CORPUSCULAR HGB CONC 32.7 g/dl (32.0-36.5); MEAN CORPUSCULAR VOLUME 98.9 fl (80.0-96.0); MONO # 0.9 10^3/uL (0.0-0.8); MONO % 7.6 % (2.0-8.0); NEUTROPHILS % 75.9 % (36.0-66.0); PLATELET COUNT, AUTOMATED 195 10^3/uL (150-450); RED BLOOD COUNT 2.81 10^6/uL (4.30-6.10); WHITE BLOOD COUNT 11.9 10^3/uL (4.0-10.0)
[2024-05-13] MEDS: LIDOCAINE 5% (LIDODERM) PATCH TD ONE (21:51)
[2024-05-14] VITALS (8 sets, daily range): BP systolic 84–128; BP diastolic 56–87; TEMP 97.2–98.5; O2SAT 92–96
[2024-05-14] MEDS: NS 1,000 ML IV SCH (00:29)
[2024-05-14] MEDS: LR 1,000 ML IV ONE (06:55)
[2024-05-14] MEDS ORDERED: LIDOCAINE 5% (LIDODERM) PATCH TD SCH ×2 (09:00→09:24)
[2024-05-14] MEDS: DOCUSATE SOD LIQ 100MG/10ML UDC GT SCH (09:00)
[2024-05-14 09:09] LABS: BASO # 0.1 10^3/uL (0.0-0.2); BASO % 0.4 % (0.0-1.0); EOS # 0.2 10^3/uL (0.0-0.5); EOS % 1.9 % (0.0-3.0); HEMATOCRIT 22.1 % (42.0-52.0); HEMOGLOBIN 7.2 g/dl (13.5-17.5); LYMPH # 1.1 10^3/uL (1.5-5.0); LYMPH % 9.3 % (24.0-44.0); MEAN CORPUSCULAR HEMOGLOBIN 32.6 pg (27.0-33.0); MEAN CORPUSCULAR HGB CONC 32.6 g/dl (32.0-36.5); MONO % 8.1 % (2.0-8.0); NEUTROPHILS # 9.4 10^3/uL (1.5-8.5); NEUTROPHILS % 79.9 % (36.0-66.0); PLATELET COUNT, AUTOMATED 161 10^3/uL (150-450); RED BLOOD COUNT 2.21 10^6/uL (4.30-6.10); WHITE BLOOD COUNT 11.8 10^3/uL (4.0-10.0)
[2024-05-14 09:28] LABS: C REACTIVE PROTEIN QUANTITATIV 9.1 MG/DL (<1.0)
[2024-05-14 09:30] LABS: CALCIUM LEVEL 8.3 MG/DL (8.3-10.6); CREATININE FOR GFR 2.12 MG/DL (0.70-1.30); GLOMERULAR FILTRATION RATE 31.8 (>35); POTASSIUM SERUM 4.2 MMOL/L (3.5-5.1)
[2024-05-14] MEDS ORDERED: ENOXAPARIN 80MG/0.8ML SYRINGE (J1650 PER 10MG) SC SCH (13:35)
[2024-05-14] MEDS: LR 1,000 ML IV SCH (13:37)
[2024-05-14 20:38] LABS: BASO % 0.3 % (0.0-1.0); EOS # 0.1 10^3/uL (0.0-0.5); HEMATOCRIT 23.2 % (42.0-52.0); HEMOGLOBIN 7.4 g/dl (13.5-17.5); LYMPH # 1.2 10^3/uL (1.5-5.0); LYMPH % 8.2 % (24.0-44.0); MEAN CORPUSCULAR HEMOGLOBIN 31.8 pg (27.0-33.0); MEAN CORPUSCULAR HGB CONC 31.9 g/dl (32.0-36.5); MEAN CORPUSCULAR VOLUME 99.6 fl (80.0-96.0); MONO # 1.2 10^3/uL (0.0-0.8); MONO % 8.4 % (2.0-8.0); NEUTROPHILS % 81.7 % (36.0-66.0); PLATELET COUNT, AUTOMATED 203 10^3/uL (150-450); RED BLOOD COUNT 2.33 10^6/uL (4.30-6.10); WHITE BLOOD COUNT 14.7 10^3/uL (4.0-10.0)
[2024-05-14] MEDS: LIDOCAINE 5% (LIDODERM) PATCH TD SCH (21:18)
[2024-05-15] VITALS (14 sets, daily range): BP systolic 94–126; BP diastolic 51–64; TEMP 97.4–99.7; O2SAT 91–97
[2024-05-15 05:02] LABS: BASO % 0.2 % (0.0-1.0); EOS # 0.2 10^3/uL (0.0-0.5); EOS % 1.4 % (0.0-3.0); LYMPH # 1.1 10^3/uL (1.5-5.0); MEAN CORPUSCULAR HEMOGLOBIN 31.6 pg (27.0-33.0); MEAN CORPUSCULAR HGB CONC 31.6 g/dl (32.0-36.5); MONO # 0.9 10^3/uL (0.0-0.8); NEUTROPHILS # 8.6 10^3/uL (1.5-8.5); NEUTROPHILS % 79.9 % (36.0-66.0); PLATELET COUNT, AUTOMATED 180 10^3/uL (150-450); RED BLOOD COUNT 1.93 10^6/uL (4.30-6.10); WHITE BLOOD COUNT 10.8 10^3/uL (4.0-10.0)
[2024-05-15 05:10] LABS: HEMATOCRIT 19.3 % (42.0-52.0); HEMOGLOBIN 6.1 g/dl (13.5-17.5)
[2024-05-15 05:19] LABS: ERYTHROCYTE SEDIMENTATION RATE 47 mm/hr (0-20)
[2024-05-15 05:22] LABS: C REACTIVE PROTEIN QUANTITATIV 13.9 MG/DL (<1.0)
[2024-05-15 05:24] LABS: CALCIUM LEVEL 8.6 MG/DL (8.3-10.6); CREATININE FOR GFR 1.99 MG/DL (0.70-1.30); GLOMERULAR FILTRATION RATE 34.3 (>35); POTASSIUM SERUM 4.5 MMOL/L (3.5-5.1)
[2024-05-15 05:36] LABS: PROCALCITONIN 0.31 ng/ml
[2024-05-15] MEDS ORDERED: ENOXAPARIN 80MG/0.8ML SYRINGE (J1650 PER 10MG) SC SCH (09:00)
[2024-05-15] MEDS: FLEET ENEMA PR PRN (09:34)
[2024-05-15] MEDS: PIPERACILLIN/TAZOBACTAM SOD 3.375 GM in D5W MINI-BAG PLUS 50 ML IV SCH (15:46)
[2024-05-15 20:30] LABS: HEMATOCRIT 24.4 % (42.0-52.0); MEAN CORPUSCULAR HEMOGLOBIN 30.5 pg (27.0-33.0); MEAN CORPUSCULAR HGB CONC 32.8 g/dl (32.0-36.5); MEAN CORPUSCULAR VOLUME 93.1 fl (80.0-96.0); PLATELET COUNT, AUTOMATED 164 10^3/uL (150-450); RED BLOOD COUNT 2.62 10^6/uL (4.30-6.10); WHITE BLOOD COUNT 11.7 10^3/uL (4.0-10.0)
[2024-05-15] MEDS ORDERED: DAPTOmycin 750 MG in NS 50 ML IV SCH (22:00)
[2024-05-16] VITALS (10 sets, daily range): BP systolic 102–121; BP diastolic 54–62; TEMP 97.8–98.8; O2SAT 90–100
[2024-05-16 06:09] LABS: BASO % 0.4 % (0.0-1.0); EOS # 0.5 10^3/uL (0.0-0.5); EOS % 4.5 % (0.0-3.0); LYMPH # 0.8 10^3/uL (1.5-5.0); LYMPH % 7.6 % (24.0-44.0); MEAN CORPUSCULAR HEMOGLOBIN 30.4 pg (27.0-33.0); MEAN CORPUSCULAR VOLUME 95.1 fl (80.0-96.0); MONO # 0.9 10^3/uL (0.0-0.8); MONO % 8.7 % (2.0-8.0); NEUTROPHILS # 8.3 10^3/uL (1.5-8.5); NEUTROPHILS % 78.3 % (36.0-66.0); PLATELET COUNT, AUTOMATED 155 10^3/uL (150-450); RED BLOOD COUNT 2.63 10^6/uL (4.30-6.10); WHITE BLOOD COUNT 10.6 10^3/uL (4.0-10.0)
[2024-05-16 06:20] LABS: CALCIUM LEVEL 8.5 MG/DL (8.3-10.6); CREATININE FOR GFR 1.69 MG/DL (0.70-1.30); GLOMERULAR FILTRATION RATE 41.4 (>35); POTASSIUM SERUM 4.5 MMOL/L (3.5-5.1)
[2024-05-16] MEDS: oxyCODONE 5MG TAB GT PRN (09:33)
[2024-05-16] MEDS: FINASTERIDE 5MG TAB PO SCH (09:33)
[2024-05-17] VITALS (17 sets, daily range): BP systolic 100–139; BP diastolic 54–71; TEMP 97.2–98.9; O2SAT 87–99
[2024-05-17 04:59] LABS: BASO % 0.3 % (0.0-1.0); EOS # 0.5 10^3/uL (0.0-0.5); EOS % 5.4 % (0.0-3.0); HEMATOCRIT 23.1 % (42.0-52.0); HEMOGLOBIN 7.2 g/dl (13.5-17.5); LYMPH # 0.8 10^3/uL (1.5-5.0); MEAN CORPUSCULAR HEMOGLOBIN 30.4 pg (27.0-33.0); MEAN CORPUSCULAR HGB CONC 31.2 g/dl (32.0-36.5); MEAN CORPUSCULAR VOLUME 97.5 fl (80.0-96.0); MONO # 0.8 10^3/uL (0.0-0.8); MONO % 8.3 % (2.0-8.0); NEUTROPHILS # 7.1 10^3/uL (1.5-8.5); NEUTROPHILS % 76.6 % (36.0-66.0); PLATELET COUNT, AUTOMATED 190 10^3/uL (150-450); RED BLOOD COUNT 2.37 10^6/uL (4.30-6.10); WHITE BLOOD COUNT 9.2 10^3/uL (4.0-10.0)
[2024-05-17 05:08] LABS: ERYTHROCYTE SEDIMENTATION RATE 64 mm/hr (0-20)
[2024-05-17 05:26] LABS: C REACTIVE PROTEIN QUANTITATIV 19.2 MG/DL (<1.0)
[2024-05-17 05:27] LABS: CALCIUM LEVEL 8.5 MG/DL (8.3-10.6); CREATININE FOR GFR 1.79 MG/DL (0.70-1.30); GLOMERULAR FILTRATION RATE 38.7 (>35); POTASSIUM SERUM 4.4 MMOL/L (3.5-5.1)
[2024-05-17 05:32] LABS: PROCALCITONIN 0.18 ng/ml
[2024-05-17 12:38] LABS: HEMATOCRIT 24.3 % (42.0-52.0); HEMOGLOBIN 7.6 g/dl (13.5-17.5); MEAN CORPUSCULAR HEMOGLOBIN 30.4 pg (27.0-33.0); MEAN CORPUSCULAR HGB CONC 31.3 g/dl (32.0-36.5); MEAN CORPUSCULAR VOLUME 97.2 fl (80.0-96.0); PLATELET COUNT, AUTOMATED 209 10^3/uL (150-450); WHITE BLOOD COUNT 9.6 10^3/uL (4.0-10.0)
[2024-05-17] MEDS: oxyCODONE 5MG TAB GT PRN (15:49)
[2024-05-18 03:10] VITALS: BP 105/73; TEMP 97.9; O2SAT 93
[2024-05-18 06:00] VITALS: O2SAT 90
[2024-05-18] MEDS: SALIVA SUBSTITUTE(MOUTHKOTE) BTL MT PRN (06:30)
[2024-05-18 06:56] LABS: BASO % 0.5 % (0.0-1.0); EOS # 0.7 10^3/uL (0.0-0.5); EOS % 8.2 % (0.0-3.0); HEMATOCRIT 23.6 % (42.0-52.0); HEMOGLOBIN 7.7 g/dl (13.5-17.5); LYMPH # 0.9 10^3/uL (1.5-5.0); LYMPH % 10.9 % (24.0-44.0); MEAN CORPUSCULAR HEMOGLOBIN 31.2 pg (27.0-33.0); MEAN CORPUSCULAR HGB CONC 32.6 g/dl (32.0-36.5); MEAN CORPUSCULAR VOLUME 95.5 fl (80.0-96.0); MONO # 0.7 10^3/uL (0.0-0.8); MONO % 8.5 % (2.0-8.0); NEUTROPHILS # 6.1 10^3/uL (1.5-8.5); NEUTROPHILS % 71.4 % (36.0-66.0); PLATELET COUNT, AUTOMATED 227 10^3/uL (150-450); RED BLOOD COUNT 2.47 10^6/uL (4.30-6.10); WHITE BLOOD COUNT 8.5 10^3/uL (4.0-10.0)
[2024-05-18 07:26] LABS: CALCIUM LEVEL 8.3 MG/DL (8.3-10.6); CREATININE FOR GFR 1.77 MG/DL (0.70-1.30); GLOMERULAR FILTRATION RATE 39.2 (>35); POTASSIUM SERUM 4.7 MMOL/L (3.5-5.1)
[2024-05-18 07:41] VITALS: BP 109/60; TEMP 97.9; O2SAT 91
[2024-05-18] MEDS: GABAPENTIN 300 MG CAP GT SCH (08:48)
[2024-05-18 12:26] VITALS: BP 108/59; TEMP 98.2; O2SAT 93
[2024-05-18 16:48] VITALS: BP 127/66; TEMP 97.7; O2SAT 96
[2024-05-18 19:40] VITALS: BP 127/66; TEMP 98.1; O2SAT 94
[2024-05-19] VITALS: BP 123/67; TEMP 97.9; O2SAT 92
[2024-05-19 03:00] VITALS: BP 126/70; TEMP 97.9; O2SAT 93
[2024-05-19 06:33] LABS: BASO # 0.1 10^3/uL (0.0-0.2); BASO % 0.6 % (0.0-1.0); EOS # 0.6 10^3/uL (0.0-0.5); EOS % 6.8 % (0.0-3.0); HEMATOCRIT 23.4 % (42.0-52.0); HEMOGLOBIN 7.3 g/dl (13.5-17.5); LYMPH # 1.2 10^3/uL (1.5-5.0); LYMPH % 13.9 % (24.0-44.0); MEAN CORPUSCULAR HEMOGLOBIN 29.9 pg (27.0-33.0); MEAN CORPUSCULAR HGB CONC 31.2 g/dl (32.0-36.5); MEAN CORPUSCULAR VOLUME 95.9 fl (80.0-96.0); MONO # 0.8 10^3/uL (0.0-0.8); MONO % 9.8 % (2.0-8.0); NEUTROPHILS # 5.7 10^3/uL (1.5-8.5); NEUTROPHILS % 68.3 % (36.0-66.0); PLATELET COUNT, AUTOMATED 263 10^3/uL (150-450); RED BLOOD COUNT 2.44 10^6/uL (4.30-6.10); WHITE BLOOD COUNT 8.3 10^3/uL (4.0-10.0)
[2024-05-19 06:52] LABS: CALCIUM LEVEL 8.4 MG/DL (8.3-10.6); CREATININE FOR GFR 1.67 MG/DL (0.70-1.30); GLOMERULAR FILTRATION RATE 41.9 (>35); POTASSIUM SERUM 4.7 MMOL/L (3.5-5.1)
[2024-05-19 08:00] VITALS: BP 125/66; TEMP 97.7; O2SAT 94
[2024-05-19 12:00] VITALS: BP 123/69; TEMP 97.5; O2SAT 91
[2024-05-19 12:31] LABS: HEMATOCRIT 25.3 % (42.0-52.0); HEMOGLOBIN 8.1 g/dl (13.5-17.5); MEAN CORPUSCULAR HEMOGLOBIN 31.2 pg (27.0-33.0); MEAN CORPUSCULAR VOLUME 97.3 fl (80.0-96.0); PLATELET COUNT, AUTOMATED 276 10^3/uL (150-450); WHITE BLOOD COUNT 7.6 10^3/uL (4.0-10.0)
[2024-05-19] MEDS: HEPARIN SOD (PORCINE) 5000UNITS/ML 1ML VIAL/SYRINGE SQ SCH (13:10)
[2024-05-19] MEDS: ASPIRIN 81MG CHEW TABLET PEG SCH (15:04)
[2024-05-19 16:00] VITALS: BP 118/68; TEMP 98.8; O2SAT 91
[2024-05-19 19:55] VITALS: BP 119/67; TEMP 97.9; O2SAT 91
[2024-05-20] VITALS: BP 121/65; TEMP 98.6; O2SAT 91
[2024-05-20 04:28] VITALS: BP 130/89; TEMP 98.2; O2SAT 95
[2024-05-20 06:42] LABS: BASO # 0.1 10^3/uL (0.0-0.2); BASO % 0.6 % (0.0-1.0); EOS # 0.5 10^3/uL (0.0-0.5); EOS % 5.7 % (0.0-3.0); HEMOGLOBIN 8.2 g/dl (13.5-17.5); LYMPH # 1.1 10^3/uL (1.5-5.0); LYMPH % 13.2 % (24.0-44.0); MEAN CORPUSCULAR HEMOGLOBIN 31.1 pg (27.0-33.0); MEAN CORPUSCULAR HGB CONC 31.5 g/dl (32.0-36.5); MEAN CORPUSCULAR VOLUME 98.5 fl (80.0-96.0); MONO # 0.9 10^3/uL (0.0-0.8); MONO % 10.2 % (2.0-8.0); NEUTROPHILS % 69.7 % (36.0-66.0); PLATELET COUNT, AUTOMATED 292 10^3/uL (150-450); RED BLOOD COUNT 2.64 10^6/uL (4.30-6.10); WHITE BLOOD COUNT 8.6 10^3/uL (4.0-10.0)
[2024-05-20 08:00] VITALS: BP 110/63; TEMP 97.9; O2SAT 90
[2024-05-20 12:14] VITALS: BP 115/75; TEMP 97.8; O2SAT 93
[2024-05-20] MEDS: SENNA 8.6 MG TAB (SENOKOT) GT ONE (16:53)
[2024-05-20] MEDS: MIRALAX *UNIT DOSE* 17GM PACKET GT SCH (16:53)
[2024-05-20 16:55] VITALS: BP 120/69; TEMP 98.2; O2SAT 91
[2024-05-20 20:00] VITALS: BP 135/84; TEMP 98.6; O2SAT 93
[2024-05-20] MEDS: ALBUTEROL 90 MCG/ACT 8GM HFA INHALER INH PRN (21:03)
[2024-05-20] MEDS: METAMUCIL (PSYLLIUM) PACKET GT SCH (22:31)
[2024-05-21 04:00] VITALS: BP 120/81; TEMP 98.1; O2SAT 94
[2024-05-21] MEDS: LACTULOSE 20GM/30ML SYRUP UDC PO SCH (08:03)
[2024-05-21] MEDS: LIDOCAINE 5% (LIDODERM) PATCH TD SCH (11:58)
[2024-05-21 12:00] VITALS: BP 127/89; TEMP 98.1; O2SAT 95
[2024-05-21] MEDS ORDERED: SENNA 8.6 MG TAB (SENOKOT) GT PRN (12:00)
[2024-05-21] MEDS: FAMOTIDINE 40MG/5ML ORAL SUSPENSON 50ML BOTTLE GT SCH (14:24)
[2024-05-21 19:54] VITALS: BP 132/81; TEMP 99.5; O2SAT 95
[2024-05-22 04:19] VITALS: BP 105/64; TEMP 99; O2SAT 94
[2024-05-22] MEDS: ASPIRIN 81MG CHEW TABLET PEG SCH (09:00)
[2024-05-22 12:00] VITALS: BP 112/70; TEMP 98.1; O2SAT 93
[2024-05-22] MEDS ORDERED: D5W/0.45% SODIUM CHLORIDE 1,000 ML IV SCH (19:05)
[2024-05-22] MEDS ORDERED: DEXTROSE 50% 50ML SYRINGE IV PRN (19:30)
[2024-05-22] MEDS ORDERED: GLUCOSE 4 GM CHEW PO PRN (19:30)
[2024-05-22] MEDS ORDERED: GLUCAGON INJ 1MG VIAL SC PRN (19:30)
[2024-05-22 20:15] VITALS: BP 111/72; TEMP 98.1; O2SAT 94
[2024-05-22] MEDS: D5W/LR 1,000 ML IV SCH (21:09)
[2024-05-22] MEDS: MORPHINE 2 MG/ML 1ML VIAL IV PRN (21:38)
[2024-05-23 03:58] VITALS: BP 114/69; TEMP 98.1; O2SAT 91
[2024-05-23 07:12] LABS: BASO % 0.1 % (0.0-1.0); EOS # 0.3 10^3/uL (0.0-0.5); EOS % 3.1 % (0.0-3.0); HEMATOCRIT 24.3 % (42.0-52.0); HEMOGLOBIN 7.5 g/dl (13.5-17.5); LYMPH # 0.8 10^3/uL (1.5-5.0); LYMPH % 8.9 % (24.0-44.0); MEAN CORPUSCULAR HEMOGLOBIN 30.5 pg (27.0-33.0); MEAN CORPUSCULAR HGB CONC 30.9 g/dl (32.0-36.5); MEAN CORPUSCULAR VOLUME 98.8 fl (80.0-96.0); MONO # 0.7 10^3/uL (0.0-0.8); MONO % 7.9 % (2.0-8.0); NEUTROPHILS # 6.9 10^3/uL (1.5-8.5); NEUTROPHILS % 79.4 % (36.0-66.0); PLATELET COUNT, AUTOMATED 342 10^3/uL (150-450); RED BLOOD COUNT 2.46 10^6/uL (4.30-6.10); WHITE BLOOD COUNT 8.7 10^3/uL (4.0-10.0)
[2024-05-23 07:41] LABS: CREATININE FOR GFR 1.55 MG/DL (0.70-1.30); GLOMERULAR FILTRATION RATE 45.7 (>35); POTASSIUM SERUM 4.7 MMOL/L (3.5-5.1)
[2024-05-23 12:00] VITALS: BP 124/71; TEMP 98.1; O2SAT 93
[2024-05-23 19:51] VITALS: BP 144/76; TEMP 98.1; O2SAT 98
[2024-05-23] MEDS: QUEtiapine FUMARATE 12.5 MG HALF-TAB GT SCH (20:29)
[2024-05-23] MEDS: diphenhydrAMINE 50MG/ML VIAL IV PRN (21:39)
[2024-05-24 03:50] VITALS: BP 153/89; TEMP 97.9; O2SAT 94
[2024-05-24 11:20] LABS: BASO % 0.4 % (0.0-1.0); EOS # 0.3 10^3/uL (0.0-0.5); EOS % 4.4 % (0.0-3.0); HEMATOCRIT 27.4 % (42.0-52.0); HEMOGLOBIN 8.1 g/dl (13.5-17.5); LYMPH # 0.8 10^3/uL (1.5-5.0); MEAN CORPUSCULAR HEMOGLOBIN 30.3 pg (27.0-33.0); MEAN CORPUSCULAR HGB CONC 29.6 g/dl (32.0-36.5); MEAN CORPUSCULAR VOLUME 102.6 fl (80.0-96.0); MONO # 0.4 10^3/uL (0.0-0.8); MONO % 5.9 % (2.0-8.0); NEUTROPHILS # 5.9 10^3/uL (1.5-8.5); NEUTROPHILS % 78.8 % (36.0-66.0); PLATELET COUNT, AUTOMATED 399 10^3/uL (150-450); RED BLOOD COUNT 2.67 10^6/uL (4.30-6.10); WHITE BLOOD COUNT 7.5 10^3/uL (4.0-10.0)
[2024-05-24 11:44] LABS: CALCIUM LEVEL 9.9 MG/DL (8.3-10.6); CREATININE FOR GFR 1.34 MG/DL (0.70-1.30); GLOMERULAR FILTRATION RATE 54.1 (>35); POTASSIUM SERUM 4.4 MMOL/L (3.5-5.1)
[2024-05-24 12:00] VITALS: BP 154/78; TEMP 97.5; O2SAT 93
[2024-05-24 19:40] VITALS: BP 152/99; TEMP 97.9; O2SAT 94
[2024-05-25] VITALS (14 sets, daily range): BP systolic 129–195; BP diastolic 78–94; TEMP 97.3–97.7; O2SAT 84–100
[2024-05-25] MEDS ORDERED: LIDOCAINE 2% JELLY 6ML SYRINGE As Ordered ONE (09:13)
[2024-05-25] MEDS ORDERED: LIDOCAINE 1% MDV 20ML VIAL As Ordered ONE (09:13)
[2024-05-25] MEDS ORDERED: ISOVUE-300 61% 100ML VIAL As Ordered ONE (09:13)
[2024-05-25] MEDS ORDERED: MIDAZOLAM INJ 2MG/2ML VIAL As Ordered ONE (10:46)
[2024-05-25] MEDS ORDERED: fentaNYL 100 MCG/2 ML INJECTION As Ordered ONE (10:46)
[2024-05-25] MEDS ORDERED: ceFAZolin 2 GM/D5W 50 ML IV BAG As Ordered ONE (10:54)
[2024-05-25] MEDS ORDERED: hydrALAZINE 20MG/ML 1ML VIAL As Ordered ONE (10:56)
[2024-05-25] MEDS ORDERED: GLUCAGON INJ 1MG VIAL As Ordered ONE (11:13)
[2024-05-25] MEDS ORDERED: CALCIUM GLUCONATE 1,000MG/10ML VIAL (100MG/ML) As Ordered ONE (12:28)
[2024-05-25] MEDS ORDERED: DEXTROSE 50% 50ML SYRINGE As Ordered ONE (12:29)
[2024-05-25] MEDS ORDERED: FUROSEMIDE 40MG/4ML VIAL As Ordered ONE (12:29)
[2024-05-25] MEDS ORDERED: HumuLIN R (REGULAR) INSULIN (NovoLIN R) **100U/ML** PER UNIT As Ordered ONE (12:30)
[2024-05-25] MEDS: CALCIUM GLUCONATE 1,000 MG in D5W MINI-BAG PLUS 100 ML IV ONE (12:51)
[2024-05-25] MEDS: FUROSEMIDE 40MG/4ML VIAL IV ONE (12:52)
[2024-05-25] MEDS: DEXTROSE 50% 50ML SYRINGE IV ONE (12:52)
[2024-05-25] MEDS: HumuLIN R (REGULAR) INSULIN (NovoLIN R) **100U/ML** PER UNIT IV ONE (12:53)
[2024-05-25 13:10] LABS: ALBUMIN 2.3 G/DL (3.2-5.2); BILIRUBIN,TOTAL 1.7 MG/DL (0.3-1.2); CALCIUM LEVEL 9.9 MG/DL (8.3-10.6); CREATININE FOR GFR 1.3 MG/DL (0.70-1.30); PHOSPHORUS LEVEL 3.6 MG/DL (2.4-5.1); POTASSIUM SERUM 6.7 MMOL/L (3.5-5.1)
[2024-05-25] MEDS ORDERED: PERCOCET 5MG/325MG TAB PO PRN (13:10)
[2024-05-25] MEDS: ALBUTEROL SULFATE 2.5MG/0.5ML INH NEB SOLN INH ONE (13:13)
[2024-05-25 15:13] LABS: CALCIUM LEVEL 10.4 MG/DL (8.3-10.6); CREATININE FOR GFR 1.27 MG/DL (0.70-1.30); GLOMERULAR FILTRATION RATE 57.5 (>35); MAGNESIUM LEVEL 1.9 MG/DL (1.8-2.4); PHOSPHORUS LEVEL 2.9 MG/DL (2.4-5.1)
[2024-05-25 16:22] LABS: BASO % 0.4 % (0.0-1.0); EOS # 0.4 10^3/uL (0.0-0.5); EOS % 5.3 % (0.0-3.0); HEMATOCRIT 29.3 % (42.0-52.0); HEMOGLOBIN 8.7 g/dl (13.5-17.5); LYMPH # 0.9 10^3/uL (1.5-5.0); LYMPH % 13.1 % (24.0-44.0); MEAN CORPUSCULAR HEMOGLOBIN 29.7 pg (27.0-33.0); MEAN CORPUSCULAR HGB CONC 29.7 g/dl (32.0-36.5); MONO # 0.4 10^3/uL (0.0-0.8); MONO % 5.8 % (2.0-8.0); NEUTROPHILS # 5.3 10^3/uL (1.5-8.5); PLATELET COUNT, AUTOMATED 342 10^3/uL (150-450); RED BLOOD COUNT 2.93 10^6/uL (4.30-6.10)
[2024-05-26 04:36] VITALS: BP 144/92; TEMP 97.7; O2SAT 95
[2024-05-26 08:08] LABS: BASO % 0.5 % (0.0-1.0); EOS # 0.3 10^3/uL (0.0-0.5); EOS % 4.4 % (0.0-3.0); HEMATOCRIT 29.1 % (42.0-52.0); HEMOGLOBIN 8.9 g/dl (13.5-17.5); LYMPH # 0.8 10^3/uL (1.5-5.0); LYMPH % 11.1 % (24.0-44.0); MEAN CORPUSCULAR HEMOGLOBIN 29.3 pg (27.0-33.0); MEAN CORPUSCULAR HGB CONC 30.6 g/dl (32.0-36.5); MEAN CORPUSCULAR VOLUME 95.7 fl (80.0-96.0); MONO # 0.5 10^3/uL (0.0-0.8); MONO % 6.4 % (2.0-8.0); NEUTROPHILS # 5.8 10^3/uL (1.5-8.5); NEUTROPHILS % 77.2 % (36.0-66.0); PLATELET COUNT, AUTOMATED 434 10^3/uL (150-450); RED BLOOD COUNT 3.04 10^6/uL (4.30-6.10); WHITE BLOOD COUNT 7.5 10^3/uL (4.0-10.0)
[2024-05-26 08:31] LABS: CALCIUM LEVEL 9.8 MG/DL (8.3-10.6); CREATININE FOR GFR 1.35 MG/DL (0.70-1.30); GLOMERULAR FILTRATION RATE 53.6 (>35); POTASSIUM SERUM 3.8 MMOL/L (3.5-5.1)
[2024-05-26] MEDS: AMINO AC/ELECTROLYTE/DEX/CALC 1,000 ML IV SCH (10:37)
[2024-05-26] MEDS: FAT EMULSION IV 250 ML IV ONE (10:42)
[2024-05-26] MEDS: ASPIRIN 300 MG SUPP PR SCH (10:48)
[2024-05-26 12:00] VITALS: BP 162/90; TEMP 97.3; O2SAT 99
[2024-05-26] MEDS: cloNIDine HCL 0.1 MG/24 HR PATCH TOP SCH (14:27)
[2024-05-26] MEDS: INSULIN LISPRO (NovoLOG) PER UNIT SC SCH (17:59)
[2024-05-26 20:33] VITALS: BP 127/86; TEMP 97.9; O2SAT 97
[2024-05-27 03:24] VITALS: BP 129/83; TEMP 97.9; O2SAT 92; O2SAT 95
[2024-05-27 09:20] LABS: BASO % 0.4 % (0.0-1.0); EOS # 0.5 10^3/uL (0.0-0.5); EOS % 7.5 % (0.0-3.0); HEMATOCRIT 27.9 % (42.0-52.0); HEMOGLOBIN 8.6 g/dl (13.5-17.5); LYMPH # 0.9 10^3/uL (1.5-5.0); LYMPH % 13.1 % (24.0-44.0); MEAN CORPUSCULAR HEMOGLOBIN 30.3 pg (27.0-33.0); MEAN CORPUSCULAR HGB CONC 30.8 g/dl (32.0-36.5); MEAN CORPUSCULAR VOLUME 98.2 fl (80.0-96.0); MONO # 0.4 10^3/uL (0.0-0.8); NEUTROPHILS # 4.9 10^3/uL (1.5-8.5); NEUTROPHILS % 72.4 % (36.0-66.0); PLATELET COUNT, AUTOMATED 409 10^3/uL (150-450); RED BLOOD COUNT 2.84 10^6/uL (4.30-6.10); WHITE BLOOD COUNT 6.8 10^3/uL (4.0-10.0)
[2024-05-27 09:42] LABS: CALCIUM LEVEL 9.5 MG/DL (8.3-10.6); CREATININE FOR GFR 1.33 MG/DL (0.70-1.30); GLOMERULAR FILTRATION RATE 54.5 (>35); MAGNESIUM LEVEL 1.9 MG/DL (1.8-2.4); PHOSPHORUS LEVEL 4.2 MG/DL (2.4-5.1); POTASSIUM SERUM 4.3 MMOL/L (3.5-5.1)
[2024-05-27 12:00] VITALS: BP 154/90; TEMP 97.5; O2SAT 75
[2024-05-27] MEDS: INSULIN LISPRO (NovoLOG) PER UNIT SC SCH (18:00)
[2024-05-27] MEDS: FAT EMULSION IV 250 ML IV ONE (18:06)
[2024-05-27 20:19] VITALS: BP 154/92; TEMP 97; O2SAT 94
[2024-05-27 20:34] VITALS: O2SAT 93
[2024-05-28 01:31] VITALS: O2SAT 94
[2024-05-28 03:57] VITALS: BP 142/68; TEMP 97.9; O2SAT 94
[2024-05-28] MEDS: ACETAMINOPHEN 650MG SUPP PR PRN (04:28)
[2024-05-28] MEDS: ARTIFICIAL TEARS DROPS 15ML BTL (VISINE DRY RELIEF) OU PRN (06:30)
[2024-05-28 06:39] LABS: BASO # 0.1 10^3/uL (0.0-0.2); BASO % 0.8 % (0.0-1.0); EOS # 0.5 10^3/uL (0.0-0.5); EOS % 7.4 % (0.0-3.0); HEMATOCRIT 29.4 % (42.0-52.0); HEMOGLOBIN 9.1 g/dl (13.5-17.5); LYMPH % 15.3 % (24.0-44.0); MEAN CORPUSCULAR HEMOGLOBIN 30.3 pg (27.0-33.0); MONO # 0.4 10^3/uL (0.0-0.8); MONO % 6.7 % (2.0-8.0); NEUTROPHILS # 4.5 10^3/uL (1.5-8.5); PLATELET COUNT, AUTOMATED 408 10^3/uL (150-450); WHITE BLOOD COUNT 6.5 10^3/uL (4.0-10.0)
[2024-05-28 07:15] LABS: CALCIUM LEVEL 9.5 MG/DL (8.3-10.6); CREATININE FOR GFR 1.37 MG/DL (0.70-1.30); GLOMERULAR FILTRATION RATE 52.7 (>35); POTASSIUM SERUM 4.3 MMOL/L (3.5-5.1)
[2024-05-28 12:00] VITALS: BP 142/88; TEMP 97.5; O2SAT 95
[2024-05-28] MEDS: FAT EMULSION IV 250 ML IV ONE (17:34)
[2024-05-28] MEDS: INSULIN LISPRO (NovoLOG) PER UNIT SC SCH (17:36)
[2024-05-28 20:11] VITALS: BP 148/87; TEMP 97.7; O2SAT 94
[2024-05-28 21:00] VITALS: O2SAT 94
[2024-05-29 00:37] VITALS: O2SAT 95
[2024-05-29 03:50] VITALS: BP 148/90; TEMP 97.7; O2SAT 92
[2024-05-29 06:16] LABS: BASO # 0.1 10^3/uL (0.0-0.2); BASO % 0.9 % (0.0-1.0); EOS # 0.5 10^3/uL (0.0-0.5); EOS % 8.5 % (0.0-3.0); HEMATOCRIT 29.8 % (42.0-52.0); HEMOGLOBIN 9.2 g/dl (13.5-17.5); LYMPH % 17.5 % (24.0-44.0); MEAN CORPUSCULAR HEMOGLOBIN 30.1 pg (27.0-33.0); MEAN CORPUSCULAR HGB CONC 30.9 g/dl (32.0-36.5); MEAN CORPUSCULAR VOLUME 97.4 fl (80.0-96.0); MONO # 0.5 10^3/uL (0.0-0.8); MONO % 8.1 % (2.0-8.0); NEUTROPHILS # 3.7 10^3/uL (1.5-8.5); NEUTROPHILS % 64.5 % (36.0-66.0); PLATELET COUNT, AUTOMATED 409 10^3/uL (150-450); RED BLOOD COUNT 3.06 10^6/uL (4.30-6.10); WHITE BLOOD COUNT 5.7 10^3/uL (4.0-10.0)
[2024-05-29 06:38] LABS: CALCIUM LEVEL 9.4 MG/DL (8.3-10.6); CREATININE FOR GFR 1.34 MG/DL (0.70-1.30); GLOMERULAR FILTRATION RATE 54.1 (>35); MAGNESIUM LEVEL 1.9 MG/DL (1.8-2.4); POTASSIUM SERUM 4.4 MMOL/L (3.5-5.1)
[2024-05-29 12:00] VITALS: BP 154/86; TEMP 97.3; O2SAT 96
[2024-05-29] MEDS: INSULIN LISPRO (NovoLOG) PER UNIT SC SCH (17:00)
[2024-05-29] MEDS: FAT EMULSION IV 250 ML IV ONE (17:41)
[2024-05-29 20:11] VITALS: BP 147/89; TEMP 97.7; O2SAT 94
[2024-05-30] VITALS (21 sets, daily range): BP systolic 117–159; BP diastolic 79–98; TEMP 97.3–97.9; O2SAT 88–96
[2024-05-30 06:06] LABS: BASO % 0.5 % (0.0-1.0); EOS # 0.4 10^3/uL (0.0-0.5); EOS % 5.5 % (0.0-3.0); HEMATOCRIT 31.1 % (42.0-52.0); HEMOGLOBIN 9.7 g/dl (13.5-17.5); MEAN CORPUSCULAR HEMOGLOBIN 30.4 pg (27.0-33.0); MEAN CORPUSCULAR HGB CONC 31.2 g/dl (32.0-36.5); MEAN CORPUSCULAR VOLUME 97.5 fl (80.0-96.0); MONO # 0.6 10^3/uL (0.0-0.8); MONO % 7.4 % (2.0-8.0); NEUTROPHILS # 5.4 10^3/uL (1.5-8.5); NEUTROPHILS % 72.5 % (36.0-66.0); PLATELET COUNT, AUTOMATED 383 10^3/uL (150-450); RED BLOOD COUNT 3.19 10^6/uL (4.30-6.10); WHITE BLOOD COUNT 7.5 10^3/uL (4.0-10.0)
[2024-05-30 06:33] LABS: CALCIUM LEVEL 9.1 MG/DL (8.3-10.6); CREATININE FOR GFR 1.32 MG/DL (0.70-1.30); MAGNESIUM LEVEL 1.9 MG/DL (1.8-2.4); PHOSPHORUS LEVEL 3.9 MG/DL (2.4-5.1); POTASSIUM SERUM 4.4 MMOL/L (3.5-5.1)
[2024-05-30] MEDS ORDERED: LIDOCAINE 2% 100MG/5ML SDV (FOR ANES.) As Ordered ONE (13:09)
[2024-05-30] MEDS: ceFAZolin SOD 2 GM in IV 1 EA IV ONE (14:04)
[2024-05-30] MEDS: amLODIPine 5 MG TAB PEG ONE (16:56)
[2024-05-30] MEDS: INSULIN LISPRO (NovoLOG) PER UNIT SC SCH (18:00)
[2024-05-30] MEDS: FAT EMULSION IV 250 ML IV ONE (18:22)
[2024-05-31] VITALS (12 sets, daily range): BP systolic 105–135; BP diastolic 69–85; TEMP 97.5–97.9; O2SAT 91–96
[2024-05-31 07:08] LABS: BASO % 0.6 % (0.0-1.0); EOS # 0.3 10^3/uL (0.0-0.5); EOS % 4.8 % (0.0-3.0); HEMOGLOBIN 9.5 g/dl (13.5-17.5); LYMPH # 0.9 10^3/uL (1.5-5.0); LYMPH % 13.3 % (24.0-44.0); MEAN CORPUSCULAR HEMOGLOBIN 30.4 pg (27.0-33.0); MEAN CORPUSCULAR HGB CONC 31.7 g/dl (32.0-36.5); MEAN CORPUSCULAR VOLUME 96.2 fl (80.0-96.0); MONO # 0.5 10^3/uL (0.0-0.8); MONO % 6.6 % (2.0-8.0); NEUTROPHILS # 5.1 10^3/uL (1.5-8.5); NEUTROPHILS % 73.8 % (36.0-66.0); PLATELET COUNT, AUTOMATED 361 10^3/uL (150-450); RED BLOOD COUNT 3.12 10^6/uL (4.30-6.10); WHITE BLOOD COUNT 6.9 10^3/uL (4.0-10.0)
[2024-05-31 07:50] LABS: CALCIUM LEVEL 9.4 MG/DL (8.3-10.6); CREATININE FOR GFR 1.27 MG/DL (0.70-1.30); GLOMERULAR FILTRATION RATE 57.5 (>35); MAGNESIUM LEVEL 1.7 MG/DL (1.8-2.4); POTASSIUM SERUM 4.3 MMOL/L (3.5-5.1)
[2024-05-31] MEDS: ASPIRIN 325 MG TAB PEG SCH (08:21)
[2024-05-31] MEDS: amLODIPine 5 MG TAB PEG SCH (08:22)
[2024-05-31] MEDS: FINASTERIDE 5MG TAB PEG SCH (08:22)
[2024-05-31] MEDS: MAG SULF 1GM/100ML (MAG RUN) 1 GM in IV 1 EA IV ONE (08:23)
[2024-05-31] MEDS: ONDANSETRON 4MG 2ML VIAL IV PRN (08:26)
[2024-05-31] MEDS: NYSTATIN CREAM 15GM TOP SCH (10:38)
[2024-05-31] MEDS ORDERED: INSULIN LISPRO (NovoLOG) PER UNIT SC SCH (18:00)
[2024-05-31] MEDS ORDERED: FAT EMULSION IV 250 ML IV ONE (18:00)
[2024-06-01 00:16] VITALS: O2SAT 82
[2024-06-01 00:25] VITALS: O2SAT 93
[2024-06-01 04:00] VITALS: BP 105/70; TEMP 97.9; O2SAT 92
[2024-06-01 06:11] LABS: BASO % 0.5 % (0.0-1.0); EOS # 0.5 10^3/uL (0.0-0.5); EOS % 5.3 % (0.0-3.0); HEMATOCRIT 32.7 % (42.0-52.0); HEMOGLOBIN 10.4 g/dl (13.5-17.5); LYMPH # 1.2 10^3/uL (1.5-5.0); LYMPH % 13.7 % (24.0-44.0); MEAN CORPUSCULAR HEMOGLOBIN 30.9 pg (27.0-33.0); MEAN CORPUSCULAR HGB CONC 31.8 g/dl (32.0-36.5); MONO # 0.7 10^3/uL (0.0-0.8); MONO % 8.5 % (2.0-8.0); NEUTROPHILS % 71.2 % (36.0-66.0); PLATELET COUNT, AUTOMATED 314 10^3/uL (150-450); RED BLOOD COUNT 3.37 10^6/uL (4.30-6.10); WHITE BLOOD COUNT 8.5 10^3/uL (4.0-10.0)
[2024-06-01 06:42] LABS: CALCIUM LEVEL 9.1 MG/DL (8.3-10.6); CREATININE FOR GFR 1.43 MG/DL (0.70-1.30); GLOMERULAR FILTRATION RATE 50.2 (>35); MAGNESIUM LEVEL 1.9 MG/DL (1.8-2.4)
[2024-06-01 09:00] VITALS: BP 106/70
[2024-06-01 09:11] VITALS: BP 106/70; O2SAT 94
[2024-06-01 12:00] VITALS: BP 108/71; TEMP 97.5; O2SAT 93
[2024-06-01] MEDS ORDERED: OXYC-517 GT (15:45)
[2024-06-01] MEDS ORDERED: ASPI-1 PEG (15:52)
== END 2024-06-01 16:45 | DRG 65 ==
LOC: EDBD 10:18 → M ED 10:18 → M ED INP 17:55 → M PCU 21:59 → M MSPAV 05-17 17:18 → M ICU 05-25 12:41 → M MSPAV 05-25 15:57
PROVIDERS: ADMIT Student in an Organized Health Care Education/Training Program; ATTEND Internal Medicine
PROC: B246ZZZ Ultrasonography of Right and Left Heart (ICD-10-PCS; principal; 2024-05-07)
PROC: B246ZZ4 Ultrasonography of Right and Left Heart, Transesophageal (ICD-10-PCS; 2024-05-09)
PROC: 0DH68UZ Insertion of Feeding Device into Stomach, Via Natural or Artificial Opening Endoscopic (ICD-10-PCS; 2024-05-11)
PROC: 30233N1 Transfusion of Nonautologous Red Blood Cells into Peripheral Vein, Percutaneous Approach (ICD-10-PCS; 2024-05-15)
PROC: 0DH68UZ Insertion of Feeding Device into Stomach, Via Natural or Artificial Opening Endoscopic (ICD-10-PCS; 2024-05-30)
DX: I63.531 Cerebral infarction due to unspecified occlusion or stenosis of right posterior cerebral artery (principal); D62 Acute posthemorrhagic anemia; N20.1 Calculus of ureter; N17.9 Acute kidney failure, unspecified; N13.30 Unspecified hydronephrosis; G81.92 Hemiplegia, unspecified affecting left dominant side; N18.30 Chronic kidney disease, stage 3 unspecified; I25.10 Atherosclerotic heart disease of native coronary artery without angina pectoris; J45.909 Unspecified asthma, uncomplicated; G47.33 Obstructive sleep apnea (adult) (pediatric); N32.81 Overactive bladder; I12.9 Hypertensive chronic kidney disease with stage 1 through stage 4 chronic kidney disease, or unspecified chronic kidney disease; E78.5 Hyperlipidemia, unspecified; N40.1 Benign prostatic hyperplasia with lower urinary tract symptoms; G25.81 Restless legs syndrome; M47.812 Spondylosis without myelopathy or radiculopathy, cervical region; R29.810 Facial weakness; R13.12 Dysphagia, oropharyngeal phase; G89.29 Other chronic pain; K59.00 Constipation, unspecified; R33.9 Retention of urine, unspecified; M79.81 Nontraumatic hematoma of soft tissue; E03.9 Hypothyroidism, unspecified; K21.9 Gastro-esophageal reflux disease without esophagitis; D50.9 Iron deficiency anemia, unspecified; I48.0 Paroxysmal atrial fibrillation; E87.5 Hyperkalemia; R41.0 Disorientation, unspecified; Z95.2 Presence of prosthetic heart valve; Z96.651 Presence of right artificial knee joint; Z98.1 Arthrodesis status

== ENCOUNTER 2024-07-02 12:30 | Outpatient (CLI) | payer MEDICARE, BC ==
[~2024-07-02 12:30] MED LIST changes: +ACET-683 PO; +ALBU8.5H INH; +ALTE2VL IV; +AMLO1TAB24 PO; +AMOX875T2 PO; +ASPI-1 PEG; +BREO1INH INH; +BUSP5TA PO; +DAPT500V8 IV; +GABA-282 PO; +LIDO1ADH10 TP; +MIRT-88 PO; +MM S100C PO; +MYRB25TA PO; +OXYC-517 GT; +SENN-186 PO; +TOPR25TA PO
[2024-07-02 12:37] VITALS: TEMP 97.2
[2024-07-02] MEDS ORDERED: ISOVUE-300 61% 100ML VIAL As Ordered ONE (14:26)
[2024-07-02] MEDS ORDERED: LIDOCAINE 2% JELLY 6ML SYRINGE As Ordered ONE (14:27)
[2024-07-02] MEDS ORDERED: LIDOCAINE 1% MDV 20ML VIAL As Ordered ONE (14:27)
[2024-07-02] MEDS ORDERED: MIDAZOLAM INJ 2MG/2ML VIAL As Ordered ONE (14:29)
[2024-07-02] MEDS ORDERED: fentaNYL 100 MCG/2 ML INJECTION As Ordered ONE (14:29)
[2024-07-02 16:15] VITALS: BP 169/102; O2SAT 94
[2024-07-02] MEDS ORDERED: NS 1,000 ML IV SCH ×2 (16:20→17:40)
[2024-07-02] MEDS ORDERED: ACETAMINOPHEN TAB 650MG DOSE (2X325MG) PO PRN (17:35)
[2024-07-02] MEDS ORDERED: ONDANSETRON 4MG 2ML VIAL IV PRN (17:40)
[2024-07-02] MEDS ORDERED: hydrALAZINE 20MG/ML 1ML VIAL IV PRN (18:05)
[2024-07-02] MEDS ORDERED: PANTOPRAZOLE 40MG VIAL IV SCH (21:00)
[2024-07-03] MEDS ORDERED: UNRESOLVED CLARIFICATION ENTRY XX SCH (00:01)
[2024-07-03] MEDS ORDERED: SYNT137T7 PO (09:11)
[2024-07-03] MEDS ORDERED: FERR324T21 PO (09:13)
[2024-07-03] MEDS ORDERED: OMEG10002 PO (09:13)
[2024-07-03] MEDS ORDERED: VITA500045 PO (09:13)
[2024-07-03] MEDS ORDERED: THERTAB52 PO (09:13)
== END 2024-07-02 17:48 | disposition short-term general hospital (02) ==
LOC: M IRPRO 12:30
PROVIDERS: ATTEND Internal Medicine
DX: Z43.1 Encounter for attention to gastrostomy (principal); K44.9 Diaphragmatic hernia without obstruction or gangrene

== ENCOUNTER 2024-07-02 16:22 | Inpatient (IN) | payer MEDICARE, BC ==
[~2024-07-02] VITALS: Ht 172.7 cm; Wt 73.3 kg
[2024-07-02 18:00] VITALS: BP 158/88; TEMP 97.7; O2SAT 98
[2024-07-02 18:42] VITALS: BP 160/84; TEMP 97.8; O2SAT 93
[2024-07-02 20:09] LABS: BASO # 0.1 10^3/uL (0.0-0.2); BASO % 0.9 % (0.0-1.0); EOS # 0.4 10^3/uL (0.0-0.5); EOS % 6.7 % (0.0-3.0); HEMATOCRIT 37.4 % (42.0-52.0); HEMOGLOBIN 12.6 g/dl (13.5-17.5); LYMPH # 1.2 10^3/uL (1.5-5.0); LYMPH % 18.8 % (24.0-44.0); MEAN CORPUSCULAR HEMOGLOBIN 32.1 pg (27.0-33.0); MEAN CORPUSCULAR HGB CONC 33.7 g/dl (32.0-36.5); MEAN CORPUSCULAR VOLUME 95.4 fl (80.0-96.0); MONO # 0.6 10^3/uL (0.0-0.8); MONO % 9.7 % (2.0-8.0); NEUTROPHILS # 4.2 10^3/uL (1.5-8.5); NEUTROPHILS % 63.6 % (36.0-66.0); PLATELET COUNT, AUTOMATED 235 10^3/uL (150-450); RED BLOOD COUNT 3.92 10^6/uL (4.30-6.10); WHITE BLOOD COUNT 6.6 10^3/uL (4.0-10.0)
[2024-07-02 20:22] LABS: INR 1.08; PARTIAL THROMBOPLASTIN TIME 31.1 SECONDS (24.8-34.2); PROTHROMBIN TIME 13.7 SECONDS (12.5-14.5)
[2024-07-02 21:26] LABS: ALKALINE PHOSPHATASE 76 U/L (46-116); ALT/SGPT < 9 U/L (7.0-40); AST/SGOT 14 U/L (<34); BILIRUBIN,TOTAL 0.7 MG/DL (0.3-1.2); BLOOD UREA NITROGEN 14 MG/DL (9-23); CALCIUM LEVEL 10.1 MG/DL (8.3-10.6); CARBON DIOXIDE LEVEL 25 MMOL/L (20-31); CHLORIDE LEVEL 109 MMOL/L (98-107); CREATININE FOR GFR 1.53 MG/DL (0.70-1.30); GLOMERULAR FILTRATION RATE 46.4 (>35); GLUCOSE, FASTING 79 MG/DL (74-106); MAGNESIUM LEVEL 1.7 MG/DL (1.8-2.4); POTASSIUM SERUM 3.4 MMOL/L (3.5-5.1); SODIUM LEVEL 137 MMOL/L (136-145); TOTAL PROTEIN 6.3 G/DL (5.7-8.2)
[2024-07-03 00:05] VITALS: BP 144/108; TEMP 97.7; O2SAT 97
[2024-07-03 04:00] VITALS: BP 160/90; TEMP 97.4; O2SAT 93
[2024-07-03 07:59] VITALS: BP 162/93; TEMP 97.4; O2SAT 95
[2024-07-03 09:00] LABS: HEMATOCRIT 38.7 % (42.0-52.0); HEMOGLOBIN 12.8 g/dl (13.5-17.5); MEAN CORPUSCULAR HEMOGLOBIN 31.5 pg (27.0-33.0); MEAN CORPUSCULAR HGB CONC 33.1 g/dl (32.0-36.5); MEAN CORPUSCULAR VOLUME 95.3 fl (80.0-96.0); PLATELET COUNT, AUTOMATED 236 10^3/uL (150-450); RED BLOOD COUNT 4.06 10^6/uL (4.30-6.10); WHITE BLOOD COUNT 9.9 10^3/uL (4.0-10.0)
[2024-07-03] MEDS: ASPIRIN 81MG ENTERIC TABLET PO SCH (09:00)
[2024-07-03] MEDS ORDERED: SYNT137T7 PO (09:11)
[2024-07-03] MEDS ORDERED: VITA500045 PO (09:13)
[2024-07-03] MEDS ORDERED: OMEG10002 PO (09:13)
[2024-07-03] MEDS ORDERED: THERTAB52 PO (09:13)
[2024-07-03] MEDS ORDERED: FERR324T21 PO (09:13)
[2024-07-03] MEDS ORDERED: HOME MED LIST COMPLETE! XX SCH (09:15)
[2024-07-03 09:25] LABS: ALBUMIN 3.1 G/DL (3.2-5.2); BILIRUBIN,TOTAL 0.8 MG/DL (0.3-1.2); CALCIUM LEVEL 10.2 MG/DL (8.3-10.6); CREATININE FOR GFR 1.58 MG/DL (0.70-1.30); GLOMERULAR FILTRATION RATE 44.7 (>35); MAGNESIUM LEVEL 1.7 MG/DL (1.8-2.4); PHOSPHORUS LEVEL 2.5 MG/DL (2.4-5.1); POTASSIUM SERUM 3.7 MMOL/L (3.5-5.1); TOTAL PROTEIN 6.1 G/DL (5.7-8.2)
[2024-07-03] MEDS ORDERED: ALBUTEROL 90 MCG/ACT 8GM HFA INHALER INH PRN (09:30)
[2024-07-03] MEDS: MAG SULF 1GM/100ML (MAG RUN) 1 GM in IV 1 EA IV ONE (09:59)
[2024-07-03] MEDS: PANTOPRAZOLE 40MG VIAL IV SCH (09:59)
[2024-07-03 16:36] VITALS: BP 162/99; TEMP 97.7; O2SAT 96
[2024-07-03] MEDS: SYMBICORT 80/4.5MCG INHALER 6GM INH SCH (19:58)
[2024-07-03 20:00] VITALS: BP 157/75; TEMP 97.8; O2SAT 95
[2024-07-03] MEDS: TAMSULOSIN 0.4 MG CAP PO SCH (21:00)
[2024-07-03] MEDS: SENNA 8.6 MG TAB (SENOKOT) PO SCH (21:00)
[2024-07-03] MEDS: ATORVASTATIN 20 MG TAB PO SCH (21:00)
[2024-07-03] MEDS: ASPIRIN 300 MG SUPP PR SCH (21:00)
[2024-07-03] MEDS: DOCUSATE SODIUM 100MG CAPSULE PO SCH (21:00)
[2024-07-03] MEDS: FINASTERIDE 5MG TAB PO SCH (21:00)
[2024-07-04] VITALS: BP 155/107; TEMP 97.4; O2SAT 94
[2024-07-04 01:20] VITALS: BP 139/99; TEMP 97.5; O2SAT 95
[2024-07-04 04:00] VITALS: BP 146/91; TEMP 97.3; O2SAT 98
[2024-07-04] MEDS: LEVOTHYROXINE 137MCG TABLET (0.137MG) PO SCH (05:38)
[2024-07-04 06:51] LABS: BASO # 0.1 10^3/uL (0.0-0.2); EOS # 0.3 10^3/uL (0.0-0.5); HEMATOCRIT 37.9 % (42.0-52.0); HEMOGLOBIN 12.7 g/dl (13.5-17.5); LYMPH # 1.5 10^3/uL (1.5-5.0); LYMPH % 18.2 % (24.0-44.0); MEAN CORPUSCULAR HEMOGLOBIN 32.2 pg (27.0-33.0); MEAN CORPUSCULAR HGB CONC 33.5 g/dl (32.0-36.5); MEAN CORPUSCULAR VOLUME 95.9 fl (80.0-96.0); MONO # 0.6 10^3/uL (0.0-0.8); MONO % 7.4 % (2.0-8.0); NEUTROPHILS # 5.6 10^3/uL (1.5-8.5); NEUTROPHILS % 69.2 % (36.0-66.0); PLATELET COUNT, AUTOMATED 217 10^3/uL (150-450); RED BLOOD COUNT 3.95 10^6/uL (4.30-6.10); WHITE BLOOD COUNT 8.1 10^3/uL (4.0-10.0)
[2024-07-04 07:35] LABS: CALCIUM LEVEL 10.6 MG/DL (8.3-10.6); CREATININE FOR GFR 1.66 MG/DL (0.70-1.30); GLOMERULAR FILTRATION RATE 42.2 (>35); MAGNESIUM LEVEL 1.8 MG/DL (1.8-2.4); PHOSPHORUS LEVEL 3.2 MG/DL (2.4-5.1); POTASSIUM SERUM 3.7 MMOL/L (3.5-5.1)
[2024-07-04] MEDS: FERROUS GLUCONATE 324 MG TAB PO SCH (09:00)
[2024-07-04] MEDS: OMEGA-3 1000MG CAPSULE PO SCH (09:00)
[2024-07-04] MEDS ORDERED: PANTOPRAZOLE 40MG TAB (PROTONIX) PO SCH (09:00)
[2024-07-04 11:30] VITALS: BP 152/88; TEMP 97.5; O2SAT 95
[2024-07-04] MEDS: ceFAZolin SOD 2 GM in IV 1 EA IV ONE (12:31)
[2024-07-04] MEDS ORDERED: ceFAZolin 2 GM/D5W 50 ML IV BAG As Ordered ONE (12:33)
[2024-07-04] MEDS ORDERED: propofoL 200 MG/20 ML VIAL As Ordered ONE (13:07)
[2024-07-04] MEDS ORDERED: LIDOCAINE 2% 100MG/5ML SDV (FOR ANES.) As Ordered ONE (13:07)
[2024-07-04] MEDS: LR 1,000 ML IV SCH (13:10)
[2024-07-04] MEDS ORDERED: fentaNYL 100 MCG/2 ML INJECTION IV PRN (13:10)
[2024-07-04] MEDS ORDERED: ONDANSETRON 4MG 2ML VIAL IV PRN (13:10)
[2024-07-04] MEDS ORDERED: oxyCODONE 5MG TAB PO PRN (13:10)
[2024-07-04 13:50] VITALS: BP 136/78; TEMP 97.5; O2SAT 94
[2024-07-04] MEDS: ALBUTEROL SULFATE 2.5MG/0.5ML INH NEB SOLN INH ONE (14:06)
[2024-07-04] MEDS: D5W/0.45% SODIUM CHLORIDE 1,000 ML IV SCH (14:38)
[2024-07-04] MEDS: NYSTATIN 100,000 UNITS/GM TOPICAL PWD 15GM TOP SCH (14:41)
[2024-07-04] MEDS: ACETAMINOPHEN TAB 650MG DOSE (2X325MG) PO PRN (16:52)
[2024-07-04 20:26] VITALS: BP 146/80; TEMP 97.5; O2SAT 96
[2024-07-05 03:51] VITALS: BP 138/86; TEMP 97.4; O2SAT 95
[2024-07-05 06:21] LABS: BASO % 0.6 % (0.0-1.0); EOS # 0.3 10^3/uL (0.0-0.5); EOS % 3.5 % (0.0-3.0); HEMATOCRIT 35.1 % (42.0-52.0); HEMOGLOBIN 11.8 g/dl (13.5-17.5); LYMPH % 13.2 % (24.0-44.0); MEAN CORPUSCULAR HEMOGLOBIN 32.5 pg (27.0-33.0); MEAN CORPUSCULAR HGB CONC 33.6 g/dl (32.0-36.5); MEAN CORPUSCULAR VOLUME 96.7 fl (80.0-96.0); MONO # 0.6 10^3/uL (0.0-0.8); MONO % 8.6 % (2.0-8.0); NEUTROPHILS # 5.3 10^3/uL (1.5-8.5); PLATELET COUNT, AUTOMATED 181 10^3/uL (150-450); RED BLOOD COUNT 3.63 10^6/uL (4.30-6.10); WHITE BLOOD COUNT 7.2 10^3/uL (4.0-10.0)
[2024-07-05 06:45] LABS: CALCIUM LEVEL 9.7 MG/DL (8.3-10.6); CREATININE FOR GFR 1.66 MG/DL (0.70-1.30); GLOMERULAR FILTRATION RATE 42.2 (>35); MAGNESIUM LEVEL 1.6 MG/DL (1.8-2.4); PHOSPHORUS LEVEL 2.9 MG/DL (2.4-5.1); POTASSIUM SERUM 3.6 MMOL/L (3.5-5.1)
[2024-07-05] MEDS: MAG SULF 1GM/100ML (MAG RUN) 1 GM in IV 1 EA IV SCH (08:26)
[2024-07-05 12:00] VITALS: BP 132/70; TEMP 97.7; O2SAT 98
[2024-07-05] MEDS ORDERED: VARIBAR PUDDING 40% w/v 230ML TUBE As Ordered ONE (12:03)
[2024-07-05] MEDS ORDERED: BARIUM SULFATE 700 MG TABLET (E-Z-DISK) As Ordered ONE (12:04)
[2024-07-05] MEDS ORDERED: E-Z-PAQUE 96% w/w SUSP 176GM BTL As Ordered ONE (12:04)
[2024-07-05] MEDS ORDERED: VARIBAR NECTAR 40% w/v 240ML SUSP BTL As Ordered ONE (12:04)
[2024-07-05 20:25] VITALS: BP 144/78; TEMP 97.5; O2SAT 98
[2024-07-06 03:33] VITALS: BP 136/74; TEMP 97.5; O2SAT 95
[2024-07-06 05:39] LABS: BASO % 0.5 % (0.0-1.0); EOS # 0.3 10^3/uL (0.0-0.5); EOS % 4.3 % (0.0-3.0); HEMATOCRIT 34.2 % (42.0-52.0); HEMOGLOBIN 11.5 g/dl (13.5-17.5); LYMPH # 1.1 10^3/uL (1.5-5.0); MEAN CORPUSCULAR HEMOGLOBIN 32.3 pg (27.0-33.0); MEAN CORPUSCULAR HGB CONC 33.6 g/dl (32.0-36.5); MEAN CORPUSCULAR VOLUME 96.1 fl (80.0-96.0); MONO # 0.5 10^3/uL (0.0-0.8); MONO % 8.4 % (2.0-8.0); NEUTROPHILS # 4.4 10^3/uL (1.5-8.5); NEUTROPHILS % 69.3 % (36.0-66.0); PLATELET COUNT, AUTOMATED 178 10^3/uL (150-450); RED BLOOD COUNT 3.56 10^6/uL (4.30-6.10); WHITE BLOOD COUNT 6.3 10^3/uL (4.0-10.0)
[2024-07-06 06:04] LABS: CALCIUM LEVEL 9.5 MG/DL (8.3-10.6); CREATININE FOR GFR 1.52 MG/DL (0.70-1.30); GLOMERULAR FILTRATION RATE 46.7 (>35); MAGNESIUM LEVEL 1.8 MG/DL (1.8-2.4); PHOSPHORUS LEVEL 2.4 MG/DL (2.4-5.1); POTASSIUM SERUM 3.6 MMOL/L (3.5-5.1)
[2024-07-06] MEDS: DOCUSATE SOD LIQ 100MG/10ML UDC GT SCH (09:01)
[2024-07-06 12:00] VITALS: BP 131/93; TEMP 97.5; O2SAT 94
[2024-07-06] MEDS: FERROUS SULFATE 300MG/5ML UDC LIQUID GT SCH (16:17)
[2024-07-06] MEDS: ASPIRIN 81MG CHEW TABLET PEG SCH (16:17)
[2024-07-06] MEDS: TRIPLE PASTE 2OZ OINTMENT TOP SCH (16:18)
[2024-07-06 16:40] LABS: CALCIUM LEVEL 9.4 MG/DL (8.3-10.6); CREATININE FOR GFR 1.51 MG/DL (0.70-1.30); GLOMERULAR FILTRATION RATE 47.1 (>35); MAGNESIUM LEVEL 1.6 MG/DL (1.8-2.4); POTASSIUM SERUM 3.6 MMOL/L (3.5-5.1)
[2024-07-06 20:00] VITALS: BP_SYST 123; BP_SYST 124; BP_DIAS 65; BP_DIAS 72; TEMP 97.9; O2SAT 96; O2SAT 97
[2024-07-06] MEDS: ATORVASTATIN 20 MG TAB GT SCH (22:10)
[2024-07-06] MEDS: FINASTERIDE 5MG TAB GT SCH (22:14)
[2024-07-06] MEDS: OMEPRAZOLE/SODIUM BICARB 20-840MG 10ML ORAL SYRINGE GT SCH (23:01)
[2024-07-07 04:00] VITALS: BP 130/76; TEMP 97.4
[2024-07-07] MEDS: LEVOTHYROXINE 137MCG TABLET (0.137MG) GT SCH (06:42)
[2024-07-07 07:20] LABS: BASO # 0.1 10^3/uL (0.0-0.2); BASO % 0.8 % (0.0-1.0); EOS # 0.5 10^3/uL (0.0-0.5); HEMATOCRIT 34.6 % (42.0-52.0); HEMOGLOBIN 11.3 g/dl (13.5-17.5); LYMPH # 1.2 10^3/uL (1.5-5.0); LYMPH % 20.2 % (24.0-44.0); MEAN CORPUSCULAR HEMOGLOBIN 31.7 pg (27.0-33.0); MEAN CORPUSCULAR HGB CONC 32.7 g/dl (32.0-36.5); MEAN CORPUSCULAR VOLUME 96.9 fl (80.0-96.0); MONO # 0.5 10^3/uL (0.0-0.8); MONO % 8.5 % (2.0-8.0); NEUTROPHILS # 3.8 10^3/uL (1.5-8.5); PLATELET COUNT, AUTOMATED 184 10^3/uL (150-450); RED BLOOD COUNT 3.57 10^6/uL (4.30-6.10); WHITE BLOOD COUNT 6.1 10^3/uL (4.0-10.0)
[2024-07-07 07:46] LABS: CALCIUM LEVEL 9.4 MG/DL (8.3-10.6); CREATININE FOR GFR 1.42 MG/DL (0.70-1.30); GLOMERULAR FILTRATION RATE 50.6 (>35); MAGNESIUM LEVEL 1.7 MG/DL (1.8-2.4); PHOSPHORUS LEVEL 2.2 MG/DL (2.4-5.1); POTASSIUM SERUM 3.6 MMOL/L (3.5-5.1)
[2024-07-07] MEDS: MAG SULF 1GM/100ML (MAG RUN) 1 GM in IV 1 EA IV SCH (08:12)
[2024-07-07] MEDS: SODIUM PHOSPHATE INJ 20 MMOL in D5W 250 ML IV ONE (10:50)
[2024-07-07 12:00] VITALS: BP 108/73; TEMP 97.7; O2SAT 93
[2024-07-07 20:00] VITALS: BP 107/72; TEMP 97.9; O2SAT 96
[2024-07-08 02:48] VITALS: BP 118/80; TEMP 97.2; O2SAT 93
[2024-07-08 04:20] VITALS: BP 121/80; TEMP 97.9; O2SAT 94
[2024-07-08 06:31] LABS: BASO # 0.1 10^3/uL (0.0-0.2); BASO % 0.8 % (0.0-1.0); EOS # 0.5 10^3/uL (0.0-0.5); EOS % 8.1 % (0.0-3.0); HEMATOCRIT 34.2 % (42.0-52.0); HEMOGLOBIN 11.3 g/dl (13.5-17.5); LYMPH # 1.2 10^3/uL (1.5-5.0); LYMPH % 19.7 % (24.0-44.0); MEAN CORPUSCULAR HEMOGLOBIN 31.9 pg (27.0-33.0); MEAN CORPUSCULAR VOLUME 96.6 fl (80.0-96.0); MONO # 0.5 10^3/uL (0.0-0.8); NEUTROPHILS # 3.7 10^3/uL (1.5-8.5); NEUTROPHILS % 62.1 % (36.0-66.0); PLATELET COUNT, AUTOMATED 183 10^3/uL (150-450); RED BLOOD COUNT 3.54 10^6/uL (4.30-6.10); WHITE BLOOD COUNT 5.9 10^3/uL (4.0-10.0)
[2024-07-08 07:01] LABS: CALCIUM LEVEL 9.3 MG/DL (8.3-10.6); CREATININE FOR GFR 1.33 MG/DL (0.70-1.30); GLOMERULAR FILTRATION RATE 54.5 (>35); MAGNESIUM LEVEL 1.8 MG/DL (1.8-2.4); PHOSPHORUS LEVEL 2.5 MG/DL (2.4-5.1)
[2024-07-08 12:00] VITALS: BP 124/82; TEMP 97.9; O2SAT 95
[2024-07-08] MEDS: HEPARIN SOD (PORCINE) 5000UNITS/ML 1ML VIAL/SYRINGE SQ SCH (14:28)
[2024-07-08 20:57] VITALS: BP 123/83; TEMP 97.7; O2SAT 94
[2024-07-09 04:00] VITALS: BP 126/84; TEMP 98.1; O2SAT 95
[2024-07-09 07:26] LABS: BASO # 0.1 10^3/uL (0.0-0.2); EOS # 0.6 10^3/uL (0.0-0.5); EOS % 9.4 % (0.0-3.0); HEMATOCRIT 37.6 % (42.0-52.0); HEMOGLOBIN 12.2 g/dl (13.5-17.5); LYMPH # 1.2 10^3/uL (1.5-5.0); LYMPH % 19.9 % (24.0-44.0); MEAN CORPUSCULAR HEMOGLOBIN 31.7 pg (27.0-33.0); MEAN CORPUSCULAR HGB CONC 32.4 g/dl (32.0-36.5); MEAN CORPUSCULAR VOLUME 97.7 fl (80.0-96.0); MONO # 0.4 10^3/uL (0.0-0.8); MONO % 7.2 % (2.0-8.0); NEUTROPHILS # 3.7 10^3/uL (1.5-8.5); NEUTROPHILS % 62.2 % (36.0-66.0); PLATELET COUNT, AUTOMATED 171 10^3/uL (150-450); RED BLOOD COUNT 3.85 10^6/uL (4.30-6.10); WHITE BLOOD COUNT 5.9 10^3/uL (4.0-10.0)
[2024-07-09 07:44] LABS: CALCIUM LEVEL 9.3 MG/DL (8.3-10.6); CREATININE FOR GFR 1.3 MG/DL (0.70-1.30); MAGNESIUM LEVEL 1.6 MG/DL (1.8-2.4)
[2024-07-09] MEDS: MAGNESIUM GLUCONATE 500 MG TAB GT SCH (09:00)
[2024-07-09] MEDS: MAG SULF 1GM/100ML (MAG RUN) 1 GM in IV 1 EA IV SCH (10:36)
[2024-07-09 12:00] VITALS: BP 127/80; TEMP 98.2; O2SAT 95
[2024-07-09 19:51] VITALS: BP 114/74; TEMP 98.1; O2SAT 94
[2024-07-10 04:00] VITALS: BP 116/78; TEMP 97.9; O2SAT 94
[2024-07-10 05:59] LABS: BASO # 0.1 10^3/uL (0.0-0.2); EOS # 0.7 10^3/uL (0.0-0.5); EOS % 8.5 % (0.0-3.0); HEMATOCRIT 36.5 % (42.0-52.0); HEMOGLOBIN 11.7 g/dl (13.5-17.5); LYMPH # 1.4 10^3/uL (1.5-5.0); LYMPH % 18.1 % (24.0-44.0); MEAN CORPUSCULAR HEMOGLOBIN 31.6 pg (27.0-33.0); MEAN CORPUSCULAR HGB CONC 32.1 g/dl (32.0-36.5); MEAN CORPUSCULAR VOLUME 98.6 fl (80.0-96.0); MONO # 0.7 10^3/uL (0.0-0.8); MONO % 8.6 % (2.0-8.0); NEUTROPHILS # 4.9 10^3/uL (1.5-8.5); NEUTROPHILS % 63.5 % (36.0-66.0); PLATELET COUNT, AUTOMATED 186 10^3/uL (150-450); WHITE BLOOD COUNT 7.7 10^3/uL (4.0-10.0)
[2024-07-10 06:21] LABS: CALCIUM LEVEL 9.7 MG/DL (8.3-10.6); CREATININE FOR GFR 1.27 MG/DL (0.70-1.30); GLOMERULAR FILTRATION RATE 57.5 (>35); MAGNESIUM LEVEL 1.9 MG/DL (1.8-2.4); POTASSIUM SERUM 4.6 MMOL/L (3.5-5.1)
[2024-07-10 12:00] VITALS: BP 111/78; TEMP 98.2; O2SAT 95
[2024-07-10 15:16] LABS: APPEARANCE, URINE HAZY (CLEAR); BACTERIA, URINE AUTO NEGATIVE (NEGATIVE); BILIRUBIN, URINE AUTO NEGATIVE (NEGATIVE); BLOOD, URINE BLOOD 3+ (NEGATIVE); COLOR, URINE YELLOW (YELLOW); GLUCOSE, URINE (UA) AUTO NEGATIVE (NEGATIVE); KETONE, URINE AUTO NEGATIVE (NEGATIVE); LEUKOCYTE ESTERASE, URINE AUTO 2+ (NEGATIVE); MUCUS, URINE SMALL (NEGATIVE); NITRITE, URINE AUTO NEGATIVE (NEGATIVE); PROTEIN, URINE AUTO 2+ mg/dL (NEGATIVE); RBC, URINE AUTO TNTC /HPF (0-3); SQUAMOUS EPITHELIAL CELL UR AU 0 /HPF (0-6); UROBILINOGEN, URINE AUTO 0.2 mg/dL (0.0-2.0); WBC, URINE AUTO 66 /HPF (0-3)
[2024-07-10 20:40] VITALS: BP 102/66; TEMP 98.2; O2SAT 95
[2024-07-10 22:17] VITALS: TEMP 97.8
[2024-07-10 23:59] VITALS: TEMP 96.4
[2024-07-11] VITALS: BP 112/78; TEMP 98.2; O2SAT 93
[2024-07-11 03:40] VITALS: BP 112/77; TEMP 97.5; O2SAT 90
[2024-07-11 06:02] LABS: BASO # 0.1 10^3/uL (0.0-0.2); BASO % 0.8 % (0.0-1.0); EOS # 0.5 10^3/uL (0.0-0.5); EOS % 8.3 % (0.0-3.0); HEMATOCRIT 35.9 % (42.0-52.0); HEMOGLOBIN 11.6 g/dl (13.5-17.5); LYMPH # 1.4 10^3/uL (1.5-5.0); LYMPH % 23.6 % (24.0-44.0); MEAN CORPUSCULAR HGB CONC 32.3 g/dl (32.0-36.5); MEAN CORPUSCULAR VOLUME 99.2 fl (80.0-96.0); MONO # 0.6 10^3/uL (0.0-0.8); NEUTROPHILS # 3.4 10^3/uL (1.5-8.5); PLATELET COUNT, AUTOMATED 180 10^3/uL (150-450); RED BLOOD COUNT 3.62 10^6/uL (4.30-6.10); WHITE BLOOD COUNT 5.9 10^3/uL (4.0-10.0)
[2024-07-11 06:25] LABS: CALCIUM LEVEL 9.6 MG/DL (8.3-10.6); CREATININE FOR GFR 1.34 MG/DL (0.70-1.30); GLOMERULAR FILTRATION RATE 54.1 (>35); MAGNESIUM LEVEL 1.8 MG/DL (1.8-2.4); POTASSIUM SERUM 4.5 MMOL/L (3.5-5.1)
[2024-07-11 12:34] VITALS: BP 111/77; TEMP 98.2; O2SAT 93
[2024-07-11] MEDS: ARTIFICIAL TEARS DROPS 15ML BTL (VISINE DRY RELIEF) OU PRN (12:54)
[2024-07-11 19:50] VITALS: BP 110/78; TEMP 98.1; O2SAT 90
[2024-07-12 05:09] LABS: BASO # 0.1 10^3/uL (0.0-0.2); BASO % 1.4 % (0.0-1.0); EOS # 0.6 10^3/uL (0.0-0.5); HEMATOCRIT 36.8 % (42.0-52.0); HEMOGLOBIN 11.9 g/dl (13.5-17.5); LYMPH # 1.6 10^3/uL (1.5-5.0); MEAN CORPUSCULAR HEMOGLOBIN 32.2 pg (27.0-33.0); MEAN CORPUSCULAR HGB CONC 32.3 g/dl (32.0-36.5); MEAN CORPUSCULAR VOLUME 99.7 fl (80.0-96.0); MONO # 0.6 10^3/uL (0.0-0.8); NEUTROPHILS # 3.4 10^3/uL (1.5-8.5); NEUTROPHILS % 54.1 % (36.0-66.0); PLATELET COUNT, AUTOMATED 177 10^3/uL (150-450); RED BLOOD COUNT 3.69 10^6/uL (4.30-6.10); WHITE BLOOD COUNT 6.3 10^3/uL (4.0-10.0)
[2024-07-12 05:46] LABS: CALCIUM LEVEL 9.6 MG/DL (8.3-10.6); CREATININE FOR GFR 1.33 MG/DL (0.70-1.30); GLOMERULAR FILTRATION RATE 54.5 (>35); MAGNESIUM LEVEL 1.6 MG/DL (1.8-2.4); POTASSIUM SERUM 4.7 MMOL/L (3.5-5.1)
[2024-07-12 06:06] VITALS: BP 136/88; TEMP 97.5; O2SAT 94
[2024-07-12] MEDS: DIAPER RELIEF PASTE (DESITIN) 60GM TOP PRN (06:10)
[2024-07-12] MEDS: MAG SULF 1GM/100ML (MAG RUN) 1 GM in IV 1 EA IV SCH (09:05)
[2024-07-12 12:00] VITALS: BP 117/82; TEMP 97.7; O2SAT 92
== END 2024-07-12 13:18 | DRG 395 ==
LOC: M MS5PR 18:06 → UNDOADMOB 18:06 → M PCU 18:30 → EEVIPCON 18:40 → OBSVTOIN 18:40 → M MSPAV 07-04 01:14
PROVIDERS: ADMIT General Practice; ATTEND Hospitalist
PROC: 0DH68UZ Insertion of Feeding Device into Stomach, Via Natural or Artificial Opening Endoscopic (ICD-10-PCS; principal; 2024-07-04 12:00)
DX: K94.23 Gastrostomy malfunction (principal); R13.12 Dysphagia, oropharyngeal phase; I69.391 Dysphagia following cerebral infarction; I12.9 Hypertensive chronic kidney disease with stage 1 through stage 4 chronic kidney disease, or unspecified chronic kidney disease; E78.5 Hyperlipidemia, unspecified; E03.9 Hypothyroidism, unspecified; I25.10 Atherosclerotic heart disease of native coronary artery without angina pectoris; I35.0 Nonrheumatic aortic (valve) stenosis; N18.30 Chronic kidney disease, stage 3 unspecified; I48.0 Paroxysmal atrial fibrillation; J45.909 Unspecified asthma, uncomplicated; N40.0 Benign prostatic hyperplasia without lower urinary tract symptoms; Y83.1 Surgical operation with implant of artificial internal device as the cause of abnormal reaction of the patient, or of later complication, without mention of misadventure at the time of the procedure; M54.9 Dorsalgia, unspecified; G89.29 Other chronic pain; K44.9 Diaphragmatic hernia without obstruction or gangrene; D50.9 Iron deficiency anemia, unspecified; M10.9 Gout, unspecified; R31.0 Gross hematuria; F41.9 Anxiety disorder, unspecified; F32.A Depression, unspecified; G47.33 Obstructive sleep apnea (adult) (pediatric); J44.9 Chronic obstructive pulmonary disease, unspecified; N20.0 Calculus of kidney; Z88.2 Allergy status to sulfonamides; Z88.1 Allergy status to other antibiotic agents; Z91.018 Allergy to other foods; Z96.0 Presence of urogenital implants; Z79.82 Long term (current) use of aspirin; Z79.890 Hormone replacement therapy; Z79.899 Other long term (current) drug therapy

== ENCOUNTER 2025-01-25 11:28 | Inpatient (IN) | payer MEDICARE, BC ==
[~2025-01-25] VITALS: Ht 167.6 cm; Wt 79.5 kg
[~2025-01-25 11:28] MED LIST changes: +FERR324T21 PO; +GABA-1172 PO; -GABA-282 PO; +OMEG10002 PO; +SYNT137T7 PO; +THERTAB52 PO; +VITA500045 PO
[2025-01-25 16:15] VITALS: BP 137/83; TEMP 98.3; O2SAT 99
[2025-01-25] MEDS ORDERED: HEPARIN SOD (PORCINE) 5000UNITS/ML 1ML VIAL/SYRINGE IV PRN (16:40)
[2025-01-25] MEDS ORDERED: HEPARIN SOD (PORCINE) 5000UNITS/ML 1ML VIAL/SYRINGE IV ONE (16:40)
[2025-01-25 17:12] LABS: BASO % 0.5 % (0.0-1.0); EOS # 0.3 10^3/uL (0.0-0.5); EOS % 5.6 % (0.0-3.0); HEMATOCRIT 32.7 % (42.0-52.0); HEMOGLOBIN 10.7 g/dl (13.5-17.5); LYMPH # 0.4 10^3/uL (1.5-5.0); LYMPH % 6.3 % (24.0-44.0); MEAN CORPUSCULAR HEMOGLOBIN 31.4 pg (27.0-33.0); MEAN CORPUSCULAR HGB CONC 32.7 g/dl (32.0-36.5); MEAN CORPUSCULAR VOLUME 95.9 fl (80.0-96.0); MONO # 0.3 10^3/uL (0.0-0.8); NEUTROPHILS # 4.7 10^3/uL (1.5-8.5); NEUTROPHILS % 82.1 % (36.0-66.0); PLATELET COUNT, AUTOMATED 111 10^3/uL (150-450); RED BLOOD COUNT 3.41 10^6/uL (4.30-6.10); WHITE BLOOD COUNT 5.8 10^3/uL (4.0-10.0)
[2025-01-25 17:21] LABS: ERYTHROCYTE SEDIMENTATION RATE 73 mm/hr (0-20)
[2025-01-25 17:26] LABS: INR 1.09; PARTIAL THROMBOPLASTIN TIME 51.1 SECONDS (24.8-34.2); PROTHROMBIN TIME 14.4 SECONDS (12.5-14.5)
[2025-01-25] MEDS ORDERED: FAMO1TAB11 PO (17:32)
[2025-01-25] MEDS ORDERED: BUDE10.2 INH (17:33)
[2025-01-25 17:39] LABS: BLOOD UREA NITROGEN 36 MG/DL (9-23); CALCIUM LEVEL 8.1 MG/DL (8.3-10.6); CARBON DIOXIDE LEVEL 24 MMOL/L (20-31); CHLORIDE LEVEL 108 MMOL/L (98-107); CREATININE FOR GFR 2.09 MG/DL (0.70-1.30); GLOMERULAR FILTRATION RATE 32.3 (>35); GLUCOSE, FASTING 75 MG/DL (74-106); POTASSIUM SERUM 4.3 MMOL/L (3.5-5.1); SODIUM LEVEL 142 MMOL/L (136-145)
[2025-01-25 17:40] LABS: ALBUMIN 2.2 G/DL (3.2-5.2); BILIRUBIN,DIRECT 0.2 MG/DL (<0.4); BILIRUBIN,TOTAL 0.4 MG/DL (0.3-1.2); TOTAL PROTEIN 5.4 G/DL (5.7-8.2)
[2025-01-25] MEDS ORDERED: HOME MED LIST COMPLETE! XX SCH (17:40)
[2025-01-25 17:47] LABS: PROCALCITONIN >50.00 ng/ml
[2025-01-25 18:08] LABS: C REACTIVE PROTEIN QUANTITATIV 26.84 MG/DL (<1.0)
[2025-01-25] MEDS: HEPARIN DRIP 25,000 UNITS in IV 1 EA IV SCH (18:08)
[2025-01-25] MEDS: ERTAPENEM SODIUM 1 GM in NS MINI-BAG PLUS 50 ML IV SCH (18:46)
[2025-01-25 19:54] VITALS: BP 137/73; TEMP 98.1; O2SAT 98
[2025-01-25 21:48] VITALS: BP 134/72; O2SAT 98
[2025-01-25] MEDS: METOPROLOL TART 25 MG TABLET PO SCH (21:54)
[2025-01-25 23:54] VITALS: BP 117/87; TEMP 98.5; O2SAT 94
[2025-01-26 04:36] VITALS: BP 120/62; TEMP 98.5; O2SAT 97
[2025-01-26] MEDS ORDERED: ALBUTEROL 90 MCG/ACT 8GM HFA INHALER INH PRN (07:10)
[2025-01-26 07:24] VITALS: BP 129/78; TEMP 97.3; O2SAT 94
[2025-01-26 07:47] LABS: BASO % 0.8 % (0.0-1.0); EOS # 0.5 10^3/uL (0.0-0.5); EOS % 9.1 % (0.0-3.0); HEMATOCRIT 29.3 % (42.0-52.0); HEMOGLOBIN 9.6 g/dl (13.5-17.5); LYMPH # 0.5 10^3/uL (1.5-5.0); LYMPH % 9.3 % (24.0-44.0); MEAN CORPUSCULAR HEMOGLOBIN 31.7 pg (27.0-33.0); MEAN CORPUSCULAR HGB CONC 32.8 g/dl (32.0-36.5); MEAN CORPUSCULAR VOLUME 96.7 fl (80.0-96.0); MONO # 0.5 10^3/uL (0.0-0.8); MONO % 9.5 % (2.0-8.0); NEUTROPHILS # 3.7 10^3/uL (1.5-8.5); NEUTROPHILS % 70.9 % (36.0-66.0); RED BLOOD COUNT 3.03 10^6/uL (4.30-6.10); WHITE BLOOD COUNT 5.3 10^3/uL (4.0-10.0)
[2025-01-26] MEDS: SYMBICORT 160/4.5MCG INHALER 6GM INH SCH (08:02)
[2025-01-26 08:07] LABS: CALCIUM LEVEL 8.8 MG/DL (8.3-10.6); CREATININE FOR GFR 2.14 MG/DL (0.70-1.30); GLOMERULAR FILTRATION RATE 31.4 (>35); POTASSIUM SERUM 4.2 MMOL/L (3.5-5.1)
[2025-01-26 08:20] LABS: PLATELET COUNT, AUTOMATED 93 10^3/uL (150-450)
[2025-01-26 10:50] VITALS: BP 152/82; TEMP 98.8; O2SAT 96
[2025-01-26] MEDS: TAMSULOSIN 0.4 MG CAP PO SCH (14:13)
[2025-01-26] MEDS: PANTOPRAZOLE 40MG TAB (PROTONIX) PO SCH (14:13)
[2025-01-26] MEDS: FINASTERIDE 5MG TAB PO SCH (14:14)
[2025-01-26] MEDS: LEVOTHYROXINE 137MCG TABLET (0.137MG) PO SCH (14:57)
[2025-01-26 15:32] VITALS: BP 158/78; TEMP 98.2; O2SAT 96
[2025-01-26] MEDS ORDERED: PILL CUTTER 1 EACH XX PRN (16:20)
[2025-01-26] MEDS: ASPIRIN 81MG ENTERIC TABLET PO SCH (19:27)
[2025-01-26 19:45] VITALS: BP 150/74; TEMP 98; O2SAT 98
[2025-01-26] MEDS: SENNA 8.6 MG TAB (SENOKOT) PO SCH (20:43)
[2025-01-26] MEDS: FAMOTIDINE 20 MG TAB PO SCH (20:43)
[2025-01-26 23:45] VITALS: BP 128/63; TEMP 98.1; O2SAT 95
[2025-01-27 03:18] LABS: HEMATOCRIT 29.9 % (42.0-52.0); HEMOGLOBIN 9.7 g/dl (13.5-17.5); MEAN CORPUSCULAR HEMOGLOBIN 31.2 pg (27.0-33.0); MEAN CORPUSCULAR HGB CONC 32.4 g/dl (32.0-36.5); MEAN CORPUSCULAR VOLUME 96.1 fl (80.0-96.0); RED BLOOD COUNT 3.11 10^6/uL (4.30-6.10); WHITE BLOOD COUNT 4.4 10^3/uL (4.0-10.0)
[2025-01-27 03:19] LABS: PLATELET COUNT, AUTOMATED 95 10^3/uL (150-450)
[2025-01-27 03:24] LABS: ERYTHROCYTE SEDIMENTATION RATE 58 mm/hr (0-20)
[2025-01-27 03:42] VITALS: BP 158/81; TEMP 98.5; O2SAT 96
[2025-01-27 04:35] LABS: CALCIUM LEVEL 8.5 MG/DL (8.3-10.6); CREATININE FOR GFR 2.05 MG/DL (0.70-1.30); POTASSIUM SERUM 4.2 MMOL/L (3.5-5.1); PROCALCITONIN 35.53 ng/ml
[2025-01-27 04:44] LABS: C REACTIVE PROTEIN QUANTITATIV 12.42 MG/DL (<1.0)
[2025-01-27 08:20] VITALS: BP 127/66; TEMP 97; O2SAT 97
[2025-01-27 11:59] VITALS: BP 147/71; TEMP 98.5; O2SAT 98
[2025-01-27 15:49] VITALS: BP 152/86; TEMP 97.4; O2SAT 96
[2025-01-27 20:38] VITALS: BP 167/79; TEMP 97.9; O2SAT 98
[2025-01-27] MEDS: METOPROLOL TART 12.5 MG PER 1/2 TAB PO SCH (21:00)
[2025-01-27 23:27] VITALS: BP 171/96; TEMP 97.5; O2SAT 97
[2025-01-28] VITALS (12 sets, daily range): BP systolic 138–198; BP diastolic 54–94; TEMP 97.4–98.8; O2SAT 92–98
[2025-01-28 06:33] LABS: HEMATOCRIT 29.2 % (42.0-52.0); HEMOGLOBIN 9.4 g/dl (13.5-17.5); MEAN CORPUSCULAR HEMOGLOBIN 30.8 pg (27.0-33.0); MEAN CORPUSCULAR HGB CONC 32.2 g/dl (32.0-36.5); MEAN CORPUSCULAR VOLUME 95.7 fl (80.0-96.0); RED BLOOD COUNT 3.05 10^6/uL (4.30-6.10); WHITE BLOOD COUNT 4.5 10^3/uL (4.0-10.0)
[2025-01-28 06:45] LABS: PLATELET COUNT, AUTOMATED 91 10^3/uL (150-450)
[2025-01-28 07:03] LABS: CALCIUM LEVEL 8.6 MG/DL (8.3-10.6); CREATININE FOR GFR 1.9 MG/DL (0.70-1.30); POTASSIUM SERUM 4.3 MMOL/L (3.5-5.1)
[2025-01-28] MEDS ORDERED: LIDOCAINE 2% 100MG/5ML SDV (FOR ANES.) As Ordered ONE (10:44)
[2025-01-28] MEDS ORDERED: propofoL 200 MG/20 ML VIAL As Ordered ONE (10:44)
[2025-01-28] MEDS ORDERED: ONDANSETRON 4MG 2ML VIAL As Ordered ONE (10:46)
[2025-01-28] MEDS ORDERED: KETOROLAC 30 MG/ML 1ML VIAL As Ordered ONE (10:46)
[2025-01-28] MEDS: ceFAZolin SODIUM 2 GM VIAL As Ordered ONE (11:25)
[2025-01-28] MEDS: ISOVUE-300 61% 100ML VIAL As Ordered ONE (11:30)
[2025-01-28] MEDS: APIXABAN 2.5 MG TAB (ELIQUIS) PO SCH (20:04)
[2025-01-29 04:59] VITALS: BP 175/86; TEMP 98.2; O2SAT 93
[2025-01-29 06:03] LABS: HEMATOCRIT 28.7 % (42.0-52.0); HEMOGLOBIN 9.4 g/dl (13.5-17.5); MEAN CORPUSCULAR HEMOGLOBIN 30.9 pg (27.0-33.0); MEAN CORPUSCULAR HGB CONC 32.8 g/dl (32.0-36.5); MEAN CORPUSCULAR VOLUME 94.4 fl (80.0-96.0); PLATELET COUNT, AUTOMATED 112 10^3/uL (150-450); RED BLOOD COUNT 3.04 10^6/uL (4.30-6.10); WHITE BLOOD COUNT 4.3 10^3/uL (4.0-10.0)
[2025-01-29 06:17] LABS: ERYTHROCYTE SEDIMENTATION RATE 45 mm/hr (0-20)
[2025-01-29 06:32] LABS: C REACTIVE PROTEIN QUANTITATIV 4.19 MG/DL (<1.0); CALCIUM LEVEL 8.8 MG/DL (8.3-10.6); CREATININE FOR GFR 1.83 MG/DL (0.70-1.30); GLOMERULAR FILTRATION RATE 37.6 (>35); POTASSIUM SERUM 4.5 MMOL/L (3.5-5.1)
[2025-01-29 06:44] LABS: PROCALCITONIN 7.27 ng/ml
[2025-01-29 07:50] VITALS: BP 148/72; TEMP 98; O2SAT 94
[2025-01-29 12:19] VITALS: BP 126/65; TEMP 98.6; O2SAT 91
[2025-01-29] MEDS: SODIUM CHLORIDE 0.9% INJ 10 ML SYR IV SCH (12:55)
[2025-01-29] MEDS: NEOSPORIN OINT 0.9 GM PKT TOP ONE (18:03)
[2025-01-29 19:41] VITALS: BP 161/75; TEMP 97.1; O2SAT 97
[2025-01-29] MEDS: METOPROLOL TART 12.5 MG PER 1/2 TAB PO SCH (20:34)
[2025-01-30 04:26] VITALS: BP 170/94; TEMP 97.5; O2SAT 94
[2025-01-30 04:42] VITALS: BP 150/82
[2025-01-30 06:23] LABS: HEMATOCRIT 28.8 % (42.0-52.0); HEMOGLOBIN 9.5 g/dl (13.5-17.5); MEAN CORPUSCULAR HEMOGLOBIN 30.9 pg (27.0-33.0); MEAN CORPUSCULAR VOLUME 93.8 fl (80.0-96.0); PLATELET COUNT, AUTOMATED 150 10^3/uL (150-450); RED BLOOD COUNT 3.07 10^6/uL (4.30-6.10); WHITE BLOOD COUNT 5.3 10^3/uL (4.0-10.0)
[2025-01-30 06:48] LABS: CALCIUM LEVEL 8.5 MG/DL (8.3-10.6); CREATININE FOR GFR 1.82 MG/DL (0.70-1.30); GLOMERULAR FILTRATION RATE 37.9 (>35); POTASSIUM SERUM 4.3 MMOL/L (3.5-5.1)
[2025-01-30 07:57] VITALS: BP 148/60; TEMP 98.1; O2SAT 96
[2025-01-30 11:00] VITALS: BP 167/85; TEMP 98.4; O2SAT 93
[2025-01-30] MEDS: traMADol 50 MG TAB PO PRN ×2 (17:55→20:29)
[2025-01-30 20:25] VITALS: BP 148/72; TEMP 97.7; O2SAT 94
[2025-01-31 05:23] VITALS: BP 134/72; TEMP 98.4; O2SAT 93
[2025-01-31 12:00] VITALS: BP 127/70; TEMP 97.7; O2SAT 90
[2025-01-31 19:55] VITALS: BP 121/69; TEMP 98.6; O2SAT 91
[2025-01-31] MEDS: SODIUM CHLORIDE 0.9% INJ 10 ML SYR IV PRN (20:17)
[2025-02-01 04:00] VITALS: BP 116/62; TEMP 98.4; O2SAT 88
[2025-02-01 09:00] VITALS: BP 121/68; TEMP 98.6; O2SAT 90
[2025-02-01] MEDS ORDERED: AMLO1TAB25 PO (09:42)
[2025-02-01] MEDS ORDERED: METO1TAB87 PO (09:42)
[2025-02-01] MEDS ORDERED: ERTA1INJ3 IJ (09:42)
[2025-02-01] MEDS ORDERED: ELIQ2.5T PO (09:42)
[2025-02-01] MEDS ORDERED: TORS20TA2 PO (09:42)
[2025-02-01] MEDS: TORSEMIDE 20 MG TAB PO SCH (09:50)
[2025-02-01 09:51] VITALS: BP 121/68
== END 2025-02-01 10:32 | DRG 699 ==
LOC: M PCU 15:58 → M MS5PR 01-30 10:30
PROVIDERS: ADMIT Internal Medicine; ATTEND Student in an Organized Health Care Education/Training Program
PROC: 0TCB8ZZ Extirpation of Matter from Bladder, Via Natural or Artificial Opening Endoscopic (ICD-10-PCS; 2025-01-28)
PROC: 0TFB8ZZ Fragmentation in Bladder, Via Natural or Artificial Opening Endoscopic (ICD-10-PCS; 2025-01-28)
PROC: 0TP98DZ Removal of Intraluminal Device from Ureter, Via Natural or Artificial Opening Endoscopic (ICD-10-PCS; principal; 2025-01-28 10:08)
DX: T83.593A Infection and inflammatory reaction due to other urinary stents, initial encounter (principal); N39.0 Urinary tract infection, site not specified; N17.9 Acute kidney failure, unspecified; I13.0 Hypertensive heart and chronic kidney disease with heart failure and stage 1 through stage 4 chronic kidney disease, or unspecified chronic kidney disease; I50.32 Chronic diastolic (congestive) heart failure; I47.20 Ventricular tachycardia, unspecified; I69.391 Dysphagia following cerebral infarction; R13.12 Dysphagia, oropharyngeal phase; I12.9 Hypertensive chronic kidney disease with stage 1 through stage 4 chronic kidney disease, or unspecified chronic kidney disease; E78.5 Hyperlipidemia, unspecified; E03.9 Hypothyroidism, unspecified; I25.10 Atherosclerotic heart disease of native coronary artery without angina pectoris; N18.30 Chronic kidney disease, stage 3 unspecified; I48.0 Paroxysmal atrial fibrillation; J45.909 Unspecified asthma, uncomplicated; N40.0 Benign prostatic hyperplasia without lower urinary tract symptoms; J44.9 Chronic obstructive pulmonary disease, unspecified; D64.9 Anemia, unspecified; Z96.653 Presence of artificial knee joint, bilateral; K21.9 Gastro-esophageal reflux disease without esophagitis; D50.9 Iron deficiency anemia, unspecified; Z95.3 Presence of xenogenic heart valve; B96.20 Unspecified Escherichia coli [E. coli] as the cause of diseases classified elsewhere; Z79.82 Long term (current) use of aspirin; Z79.890 Hormone replacement therapy; Z79.899 Other long term (current) drug therapy; Z88.1 Allergy status to other antibiotic agents; Z88.2 Allergy status to sulfonamides; Z91.018 Allergy to other foods; Y83.1 Surgical operation with implant of artificial internal device as the cause of abnormal reaction of the patient, or of later complication, without mention of misadventure at the time of the procedure

== ENCOUNTER 2025-02-01 08:44 | Inpatient (IN) | payer MEDICARE, BC ==
[~2025-02-01] VITALS: Ht 167.6 cm; Wt 72.4 kg
[~2025-02-01 08:44] MED LIST changes: +BUDE10.2 INH; +FAMO1TAB11 PO
[2025-02-01] MEDS ORDERED: TORS20TA2 PO (09:42)
[2025-02-01] MEDS ORDERED: ERTA1INJ3 IJ (09:42)
[2025-02-01] MEDS ORDERED: AMLO1TAB25 PO (09:42)
[2025-02-01] MEDS ORDERED: ELIQ2.5T PO (09:42)
[2025-02-01] MEDS ORDERED: METO1TAB87 PO (09:42)
[2025-02-01] MEDS ORDERED: SIMETHICONE 80MG CHEW TAB PO PRN (10:10)
[2025-02-01] MEDS ORDERED: ACETAMINOPHEN 325 MG TAB PO PRN (10:10)
[2025-02-01] MEDS ORDERED: BISACODYL 10MG SUPP PR PRN (10:10)
[2025-02-01] MEDS ORDERED: MAALOX 30 ML SUSP *UDC PO PRN (10:10)
[2025-02-01] MEDS ORDERED: MOM 30ML SUSPENSION UDC PO PRN (10:10)
[2025-02-01 11:00] VITALS: BP 138/67; TEMP 97.9; O2SAT 95
[2025-02-01] MEDS ORDERED: ALBUTEROL 90 MCG/ACT 8GM HFA INHALER INH PRN (11:05)
[2025-02-01] MEDS ORDERED: ONDANSETRON 4MG ORAL DISINTEGRATING TAB SL PRN (11:15)
[2025-02-01] MEDS ORDERED: SODIUM CHLORIDE 0.9% INJ 10 ML SYR IV PRN (11:20)
[2025-02-01 12:00] VITALS: BP 106/58; TEMP 97.2; O2SAT 94
[2025-02-01] MEDS ORDERED: ERTAPENEM 1GM VIAL (INVanz) IV SCH (18:00)
[2025-02-01] MEDS: ERTAPENEM SODIUM 1 GM in NS MINI-BAG PLUS 50 ML IV SCH (18:18)
[2025-02-01 20:00] VITALS: BP 112/56; TEMP 97.9; O2SAT 92
[2025-02-01] MEDS: SYMBICORT 160/4.5MCG INHALER 6GM INH SCH (20:00)
[2025-02-01] MEDS: APIXABAN 2.5 MG TAB (ELIQUIS) PO SCH (20:43)
[2025-02-01] MEDS: DOCUSATE SODIUM 100MG CAPSULE PO SCH (20:43)
[2025-02-01] MEDS: MAGNESIUM OXIDE 400MG TAB (MAG-OX) PO SCH (20:44)
[2025-02-01] MEDS: METOPROLOL TART 12.5 MG PER 1/2 TAB PO SCH (20:44)
[2025-02-01] MEDS: SENNA 8.6 MG TAB (SENOKOT) PO SCH (20:44)
[2025-02-01] MEDS: FAMOTIDINE 20 MG TAB PO SCH (20:44)
[2025-02-01] MEDS: traMADol 50 MG TAB PO PRN (21:37)
[2025-02-02 04:00] VITALS: BP 119/61; TEMP 97.4; O2SAT 93
[2025-02-02] MEDS: LEVOTHYROXINE 137MCG TABLET (0.137MG) PO SCH (05:08)
[2025-02-02 05:12] LABS: BASO # 0.1 10^3/uL (0.0-0.2); BASO % 0.8 % (0.0-1.0); EOS # 0.4 10^3/uL (0.0-0.5); EOS % 4.7 % (0.0-3.0); HEMATOCRIT 31.4 % (42.0-52.0); HEMOGLOBIN 10.5 g/dl (13.5-17.5); LYMPH # 1.5 10^3/uL (1.5-5.0); LYMPH % 15.9 % (24.0-44.0); MEAN CORPUSCULAR HGB CONC 33.4 g/dl (32.0-36.5); MEAN CORPUSCULAR VOLUME 92.6 fl (80.0-96.0); MONO # 0.6 10^3/uL (0.0-0.8); MONO % 6.2 % (2.0-8.0); NEUTROPHILS # 6.5 10^3/uL (1.5-8.5); NEUTROPHILS % 71.1 % (36.0-66.0); PLATELET COUNT, AUTOMATED 230 10^3/uL (150-450); RED BLOOD COUNT 3.39 10^6/uL (4.30-6.10); WHITE BLOOD COUNT 9.1 10^3/uL (4.0-10.0)
[2025-02-02 05:39] LABS: ALBUMIN 2.3 G/DL (3.2-5.2); BILIRUBIN,TOTAL 0.4 MG/DL (0.3-1.2); CALCIUM LEVEL 8.4 MG/DL (8.3-10.6); CREATININE FOR GFR 2.08 MG/DL (0.70-1.30); GLOMERULAR FILTRATION RATE 32.5 (>35); POTASSIUM SERUM 4.2 MMOL/L (3.5-5.1); TOTAL PROTEIN 5.5 G/DL (5.7-8.2)
[2025-02-02] MEDS: SYMBICORT 160/4.5MCG INHALER 6GM INH SCH (08:00)
[2025-02-02] MEDS ORDERED: TORSEMIDE 20 MG TAB PO SCH (09:00)
[2025-02-02] MEDS: ASPIRIN 81MG ENTERIC TABLET PO SCH (10:07)
[2025-02-02] MEDS: PANTOPRAZOLE 40MG TAB (PROTONIX) PO SCH (10:07)
[2025-02-02] MEDS: TAMSULOSIN 0.4 MG CAP PO SCH (10:07)
[2025-02-02] MEDS: FINASTERIDE 5MG TAB PO SCH (10:07)
[2025-02-02] MEDS: TORSEMIDE 10 MG TABLET PO SCH (10:10)
[2025-02-02] MEDS: SODIUM CHLORIDE 0.9% INJ 10 ML SYR IV SCH (10:11)
[2025-02-02 12:00] VITALS: BP 118/67; TEMP 97.3; O2SAT 95
[2025-02-02 20:00] VITALS: BP 134/84; TEMP 98; O2SAT 94
[2025-02-03 04:00] VITALS: BP 113/55; TEMP 97.5; O2SAT 92
[2025-02-03 06:41] LABS: CALCIUM LEVEL 8.5 MG/DL (8.3-10.6); CREATININE FOR GFR 2.19 MG/DL (0.70-1.30); GLOMERULAR FILTRATION RATE 30.6 (>35); POTASSIUM SERUM 4.3 MMOL/L (3.5-5.1)
[2025-02-03] MEDS: BISACODYL 5MG TAB PO PRN (08:28)
[2025-02-03 12:00] VITALS: BP 117/63; TEMP 98.5; O2SAT 93
[2025-02-03 20:03] VITALS: BP 117/65; TEMP 98.1; O2SAT 93
[2025-02-04 04:25] VITALS: BP 117/56; TEMP 97.2; O2SAT 90
[2025-02-04 06:49] LABS: BASO # 0.1 10^3/uL (0.0-0.2); BASO % 0.8 % (0.0-1.0); EOS # 0.4 10^3/uL (0.0-0.5); EOS % 4.6 % (0.0-3.0); HEMATOCRIT 30.9 % (42.0-52.0); HEMOGLOBIN 10.3 g/dl (13.5-17.5); LYMPH # 1.7 10^3/uL (1.5-5.0); LYMPH % 20.1 % (24.0-44.0); MEAN CORPUSCULAR HEMOGLOBIN 31.1 pg (27.0-33.0); MEAN CORPUSCULAR HGB CONC 33.3 g/dl (32.0-36.5); MEAN CORPUSCULAR VOLUME 93.4 fl (80.0-96.0); MONO # 0.6 10^3/uL (0.0-0.8); MONO % 7.2 % (2.0-8.0); NEUTROPHILS # 5.6 10^3/uL (1.5-8.5); NEUTROPHILS % 66.6 % (36.0-66.0); PLATELET COUNT, AUTOMATED 259 10^3/uL (150-450); RED BLOOD COUNT 3.31 10^6/uL (4.30-6.10); WHITE BLOOD COUNT 8.3 10^3/uL (4.0-10.0)
[2025-02-04 07:08] LABS: ERYTHROCYTE SEDIMENTATION RATE 57 mm/hr (0-20)
[2025-02-04 07:16] LABS: C REACTIVE PROTEIN QUANTITATIV 3.12 MG/DL (<1.0)
[2025-02-04 07:17] LABS: ALBUMIN 2.4 G/DL (3.2-5.2); BILIRUBIN,TOTAL 0.5 MG/DL (0.3-1.2); CALCIUM LEVEL 8.9 MG/DL (8.3-10.6); CREATININE FOR GFR 2.32 MG/DL (0.70-1.30); GLOMERULAR FILTRATION RATE 28.6 (>35); MAGNESIUM LEVEL 1.9 MG/DL (1.8-2.4); POTASSIUM SERUM 4.4 MMOL/L (3.5-5.1); TOTAL PROTEIN 5.8 G/DL (5.7-8.2)
[2025-02-04] MEDS: VITAMIN D 50,000 UNITS CAPSULE (ERGOCALCIFEROL 1.25MG) PO SCH (07:38)
[2025-02-04 12:00] VITALS: BP 106/69; TEMP 97.6; O2SAT 95
[2025-02-04] MEDS: BISACODYL 5MG TAB PO SCH (12:15)
[2025-02-04 20:00] VITALS: BP 130/69; TEMP 97.7; O2SAT 92
[2025-02-04] MEDS: SENNA 8.6 MG TAB (SENOKOT) PO SCH (20:17)
[2025-02-05 04:33] VITALS: BP 113/60; TEMP 98.8; O2SAT 94
[2025-02-05] MEDS: ERTAPENEM SODIUM 500 MG in NS 50 ML IV SCH (12:23)
[2025-02-05 19:43] VITALS: BP 112/61; TEMP 97.4; O2SAT 92
[2025-02-06 04:00] VITALS: BP 115/56; TEMP 98.3; O2SAT 92
[2025-02-06 09:45] VITALS: BP 109/68; TEMP 98.1; O2SAT 94
[2025-02-06 12:00] VITALS: BP 104/61; TEMP 98; O2SAT 94
[2025-02-06 20:00] VITALS: BP 111/64; TEMP 98.4; O2SAT 93
[2025-02-07 04:00] VITALS: BP 107/56; TEMP 97.7; O2SAT 93
[2025-02-07 12:00] VITALS: BP 127/67; TEMP 97.5; O2SAT 97
[2025-02-07 20:00] VITALS: BP 121/57; TEMP 97.6; O2SAT 96
[2025-02-08 04:00] VITALS: BP 99/54; TEMP 98.5; O2SAT 92
[2025-02-08 12:01] VITALS: BP 112/64; TEMP 98.3; O2SAT 94
[2025-02-08 19:40] VITALS: BP 128/76; TEMP 97.9; O2SAT 95
[2025-02-09 04:36] VITALS: BP 119/61; TEMP 97.9; O2SAT 93
[2025-02-09 12:00] VITALS: BP 98/64; TEMP 97.3; O2SAT 94
[2025-02-09 20:00] VITALS: BP 112/63; TEMP 98.2; O2SAT 95
[2025-02-10 03:32] VITALS: BP 111/63; TEMP 98.2; O2SAT 93
[2025-02-10 12:05] VITALS: BP 104/55; TEMP 98.4; O2SAT 93
[2025-02-10 19:43] VITALS: BP 110/59; TEMP 98.9; O2SAT 91
[2025-02-11 03:31] VITALS: BP 104/66; TEMP 98.2; O2SAT 95
[2025-02-11 05:42] LABS: BASO # 0.1 10^3/uL (0.0-0.2); BASO % 1.3 % (0.0-1.0); EOS # 0.3 10^3/uL (0.0-0.5); EOS % 4.7 % (0.0-3.0); HEMATOCRIT 28.4 % (42.0-52.0); HEMOGLOBIN 9.3 g/dl (13.5-17.5); LYMPH # 1.2 10^3/uL (1.5-5.0); LYMPH % 19.5 % (24.0-44.0); MEAN CORPUSCULAR HEMOGLOBIN 30.9 pg (27.0-33.0); MEAN CORPUSCULAR HGB CONC 32.7 g/dl (32.0-36.5); MEAN CORPUSCULAR VOLUME 94.4 fl (80.0-96.0); MONO # 0.8 10^3/uL (0.0-0.8); MONO % 12.8 % (2.0-8.0); NEUTROPHILS # 3.8 10^3/uL (1.5-8.5); NEUTROPHILS % 61.2 % (36.0-66.0); PLATELET COUNT, AUTOMATED 218 10^3/uL (150-450); RED BLOOD COUNT 3.01 10^6/uL (4.30-6.10); WHITE BLOOD COUNT 6.2 10^3/uL (4.0-10.0)
[2025-02-11 05:56] LABS: ERYTHROCYTE SEDIMENTATION RATE 45 mm/hr (0-20)
[2025-02-11 06:03] LABS: ALBUMIN 2.5 G/DL (3.2-5.2); BILIRUBIN,TOTAL 0.3 MG/DL (0.3-1.2); C REACTIVE PROTEIN QUANTITATIV 2.46 MG/DL (<1.0); CALCIUM LEVEL 8.6 MG/DL (8.3-10.6); CREATININE FOR GFR 2.09 MG/DL (0.70-1.30); GLOMERULAR FILTRATION RATE 30.5 (>35); MAGNESIUM LEVEL 1.8 MG/DL (1.8-2.4); POTASSIUM SERUM 4.5 MMOL/L (3.5-5.1); TOTAL PROTEIN 5.7 G/DL (5.7-8.2)
[2025-02-11 12:26] VITALS: BP 90/68; TEMP 97.7
[2025-02-11] MEDS ORDERED: TORS20TA2 PO (13:08)
[2025-02-11] MEDS ORDERED: METO1TAB87 PO (13:08)
[2025-02-11] MEDS ORDERED: MAGN400T2 PO (13:08)
[2025-02-11 20:00] VITALS: BP 124/64; TEMP 97.5; O2SAT 95
[2025-02-12 04:00] VITALS: BP 127/68; TEMP 98.3; O2SAT 94
[2025-02-12 12:00] VITALS: BP 103/50; TEMP 98.5; O2SAT 94
[2025-02-12 20:00] VITALS: BP 108/53; TEMP 98.5; O2SAT 94
[2025-02-13 04:00] VITALS: BP 110/64; TEMP 98.8; O2SAT 93
[2025-02-13 08:56] VITALS: BP 110/64
[2025-02-13] MEDS: ACETAMINOPHEN 500 MG TAB PO PRN (08:57)
== END 2025-02-13 12:15 | disposition home health service (06) | DRG 872 ==
LOC: M PM&R 10:35
PROVIDERS: ADMIT Physical Medicine & Rehabilitation; ATTEND Physical Medicine & Rehabilitation
DX: A41.9 Sepsis, unspecified organism (principal); N17.9 Acute kidney failure, unspecified; T83.59 Infection and inflammatory reaction due to prosthetic device, implant and graft in urinary system; R13.12 Dysphagia, oropharyngeal phase; I12.9 Hypertensive chronic kidney disease with stage 1 through stage 4 chronic kidney disease, or unspecified chronic kidney disease; E78.5 Hyperlipidemia, unspecified; E03.9 Hypothyroidism, unspecified; I25.10 Atherosclerotic heart disease of native coronary artery without angina pectoris; N18.30 Chronic kidney disease, stage 3 unspecified; I48.0 Paroxysmal atrial fibrillation; J45.909 Unspecified asthma, uncomplicated; N40.0 Benign prostatic hyperplasia without lower urinary tract symptoms; K21.9 Gastro-esophageal reflux disease without esophagitis; D64.9 Anemia, unspecified; I69.391 Dysphagia following cerebral infarction; M25.462 Effusion, left knee; K59.00 Constipation, unspecified; R53.81 Other malaise; Z74.09 Other reduced mobility; Z74.1 Need for assistance with personal care; Z95.2 Presence of prosthetic heart valve; Z96.653 Presence of artificial knee joint, bilateral; Z93.6 Other artificial openings of urinary tract status; Z79.01 Long term (current) use of anticoagulants; Z79.890 Hormone replacement therapy; Z79.899 Other long term (current) drug therapy; Z88.2 Allergy status to sulfonamides; Z88.1 Allergy status to other antibiotic agents; Z91.018 Allergy to other foods

== ENCOUNTER → 2025-02-27 | Outpatient (REF) | payer MEDICARE, BC ==
[~2025-02-27] MED LIST changes: +AMLO1TAB25 PO; +ELIQ2.5T PO; +ERTA1INJ3 IJ; +MAGN400T2 PO; +METO1TAB87 PO; +TORS20TA2 PO
[2025-02-27 14:17] LABS: APPEARANCE, URINE CLEAR (CLEAR); BACTERIA, URINE AUTO NEGATIVE (NEGATIVE); BILIRUBIN, URINE AUTO NEGATIVE (NEGATIVE); BLOOD, URINE BLOOD 1+ (NEGATIVE); COLOR, URINE YELLOW (YELLOW); GLUCOSE, URINE (UA) AUTO NEGATIVE (NEGATIVE); KETONE, URINE AUTO NEGATIVE (NEGATIVE); LEUKOCYTE ESTERASE, URINE AUTO NEGATIVE (NEGATIVE); NITRITE, URINE AUTO NEGATIVE (NEGATIVE); PROTEIN, URINE AUTO NEGATIVE (NEGATIVE); RBC, URINE AUTO 11 /HPF (0-3); SPECIFIC GRAVITY URINE AUTO 1.011 (1.002-1.035); SQUAMOUS EPITHELIAL CELL UR AU 0 /HPF (0-6); UROBILINOGEN, URINE AUTO 0.2 mg/dL (0.0-2.0); WBC, URINE AUTO 1 /HPF (0-3)
== END ==
LOC: M LAB REF 12:48
PROVIDERS: ATTEND Student in an Organized Health Care Education/Training Program
DX: T83.592A Infection and inflammatory reaction due to indwelling ureteral stent, initial encounter (principal); Y84.6 Urinary catheterization as the cause of abnormal reaction of the patient, or of later complication, without mention of misadventure at the time of the procedure

== ENCOUNTER → 2025-05-28 | Outpatient (CLI) | payer MEDICARE, BC, MEDICAID ==
[2025-05-28 13:24] LABS: BASO # 0.0 10^3/uL (0.0-0.2); BASO % 0.5 % (0.0-1.0); EOS # 0.2 10^3/uL (0.0-0.5); EOS % 3.9 % (0.0-3.0); LYMPH # 0.9 10^3/uL (1.5-5.0); LYMPH % 15.0 % (24.0-44.0); MONO # 0.7 10^3/uL (0.0-0.8); MONO % 11.1 % (2.0-8.0); NEUTROPHILS # 4.3 10^3/uL (1.5-8.5); NEUTROPHILS % 69.3 % (36.0-66.0); PLATELET COUNT, AUTOMATED 224 10^3/uL (150-450)
[2025-05-28 13:59] LABS: CALCIUM LEVEL 9.5 MG/DL (8.3-10.6); CARBON DIOXIDE LEVEL 27.0 MMOL/L (20-31); CHLORIDE LEVEL 104.0 MMOL/L (98-107); CHOLESTEROL LEVEL 223.0 MG/DL (<200); CHOLESTEROL RISK RATIO 4.33 (<5); CREATININE FOR GFR 2.22 MG/DL (0.70-1.30); GLOMERULAR FILTRATION RATE 28.3 (>35); IRON (FE) 32.0 UG/DL (65-175); LDL CHOLESTEROL 154.4 MG/DL (<100); NON-HDL-C 171.6 MG/DL; PERCENT SATURATION 13.0 % (19.7-50.0); POTASSIUM SERUM 5.1 MMOL/L (3.5-5.1); SODIUM LEVEL 144.0 MMOL/L (136-145); TRIGLYCERIDES LEVEL 86.0 MG/DL (<150)
[2025-05-28 14:00] LABS: VITAMIN B12 LEVEL 600.0 PG/ML (211-911)
[2025-06-02 00:43] LABS: 25-HYDROXY VITAMIN D2 17 pg/mL; 25-HYDROXY VITAMIN D3 10 pg/mL; VITAMIN D 1 25 DIHYDROXY 27 pg/mL (18-72)
== END ==
LOC: M PLALAB 11:09
PROVIDERS: ATTEND Student in an Organized Health Care Education/Training Program
DX: I25.10 Atherosclerotic heart disease of native coronary artery without angina pectoris (principal); Z86.39 Personal history of other endocrine, nutritional and metabolic disease; R78.81 Bacteremia; E55.9 Vitamin D deficiency, unspecified; E89.0 Postprocedural hypothyroidism; N18.4 Chronic kidney disease, stage 4 (severe)